=== PATIENT | female | born 2000 | race Caucasian/White ===

== ENCOUNTER 2019-08-04 15:34 | Inpatient (IN) | payer MEDICAID ==
[~2019-08-04] VITALS: Ht 167.6 cm; Wt 90.7 kg
[2019-08-04 15:44] VITALS: BP 136/73
--- NOTE | 2019-08-04 15:54 | NUR ---
PT AMBULATED TO BED 12.
--- NOTE | 2019-08-04 15:58 | NUR ---
Dr. Damon evaluating patient at bedside.
--- NOTE | 2019-08-04 16:00 | NUR ---
19F C/O 10/10 STABBING LOWER ABDOMINAL PAIN X 1 DAY OF SUDDEN ONSET. PAIN HAS BEEN CONTINUOUS. DENIES N/V/D. HAD HAS THIS TYPE OF PAIN BEFORE WITH DX OF DIVERTICULITIS, BUT PT STATES SHE GOT COLONOSCOPY WHICH SHOWED INTERNAL HEMORRHOIDS ONLY. NORMOACTIVE BS. LOWER ABD TENDER TO PALPATION. MED HX: HEMORROIDS, LEFT OVARIAN CYST
--- NOTE | 2019-08-04 16:32 | NUR ---
PT BACK FROM CT
[2019-08-04] MEDS ORDERED: metroNIDAZOLE 500 MG/NS PREMIX 100 ML IV ONE (16:45)
[2019-08-04] MEDS ORDERED: NACL 0.9% 1,000 ML IV ONE (16:45)
[2019-08-04] MEDS ORDERED: LEVOFLOXACIN 750 MG/D5W PREMIX 150 ML IV ONE (16:45)
[2019-08-04] MEDS ORDERED: MORPHINE SULFATE 4 MG/ML SYR IVP ONE (16:50)
[2019-08-04 17:02] LABS: APPEARANCE,URINE CLEAR (CLEAR); BILIRUBIN,URINE NEGATIVE (NEGATIVE); BLOOD, URINE TRACE-I (NEGATIVE); COLOR,URINE YELLOW (YELLOW); LEUKOCYTE ESTERASE ,URINE NEGATIVE (NEGATIVE); NITRITE, URINE NEGATIVE (NEGATIVE); UGLUCOSE NEGATIVE (NEGATIVE)
[2019-08-04 17:05] LABS: RBC,URINE 0-5 /HPF (0-5)
[2019-08-04 17:06] LABS: TRICHOMONAS,URINE None Seen /HPF (None Seen); WBC,URINE NONE SEEN /HPF (0-5); YEAST,URINE None Seen /HPF (None Seen)
[2019-08-04 17:58] LABS: BASOPHILS # (AUTO) 0.1 K/uL (0.00-0.22); BASOPHILS % (AUTO) 0.3 % (0.0-2.0); EOSINOPHILS % (AUTO) 0.2 % (0.0-4.0); HEMATOCRIT 40.5 % (36-48); HEMOGLOBIN 13.4 g/dL (12.0-16.0); LYMPHOCYTES # (AUTO) 1.7 K/uL (2.5-16.5); LYMPHOCYTES % (AUTO) 9.9 % (20.5-51.1); MEAN CORPUSCULAR HEMOGLOBIN 29 pg (27-31); MEAN CORPUSCULAR HGB CONC 33 g/dL (33-37); MEAN CORPUSCULAR VOLUME 86.6 fL (80-94); MONOCYTES # (AUTO) 0.8 K/uL (0.8-1.0); MONOCYTES % (AUTO) 4.4 % (1.7-9.3); NEUTROPHILS # (AUTO) 14.6 K/uL (1.8-7.7); NEUTROPHILS % (AUTO) 85.2 % (42.2-75.2); PLATELET COUNT (AUTO) 243 K/uL (140-450); RED BLOOD CELL COUNT(AUTO) 4.68 MIL/uL (4.20-5.40); RED CELL DISTRIBUTION WIDTH 13.8 % (11.6-13.7); WHITE BLOOD COUNT (AUTO) 17.1 K/uL (4.5-11.0)
[2019-08-04] MEDS ORDERED: MORPHINE SULFATE 2 MG/ML SYR IVP PRN (18:05)
[2019-08-04] MEDS ORDERED: HYDROcodone/APAP 7.5/325 MG 1 TAB PO PRN (18:05)
[2019-08-04] MEDS ORDERED: ACETAMINOPHEN 325 MG TAB PO PRN (18:05)
[2019-08-04] MEDS ORDERED: DOCUSATE SODIUM 100 MG GELCAP PO PRN (18:05)
[2019-08-04] MEDS ORDERED: ONDANSETRON 4 MG/2 ML VIAL IM/IVP PRN (18:05)
[2019-08-04 18:24] LABS: ALBUMIN 4.1 g/dL (3.4-5.0); ANION GAP 15.2 (8-16); CREATININE 0.6 mg/dL (0.6-1.3); POTASSIUM 4.2 mmol/L (3.5-5.1); TOTAL BILIRUBIN 0.4 mg/dL (0.0-1.0)
[2019-08-04 18:25] LABS: PROTHROMBIN TIME 10.1 secs (10.8-13.4)
--- NOTE | 2019-08-04 18:40 | NUR ---
RECEIVED REPORT FROM EMERGENCY ROOM NURSE LEONA FOR CONTINUITY OF CARE. PT IN STABLE CONDITION. RESPIRATIONS EVEN AND UNLABORED. IV INTACT AND PATENT. SAFETY MEASURES IN PLACE. BED IN LOW POSITION. CALL LIGHT AT BEDSIDE. WILL CONTINUE TO MONITOR.
--- NOTE | 2019-08-04 18:40 | NUR ---
Patient will be admitted to care of DR. TINOCO. Admited to TELE. Will go to room 111B. Belongings list completed. Report to ERNO GOINS.
--- NOTE | 2019-08-04 19:26 | NUR ---
GAVE REPORT TO HOME AID NURSE MIKKI FOR CONTINUITY OF CARE. PT IN STABLE CONDITION.
--- NOTE | 2019-08-04 19:30 | NUR ---
RECEIVED FROM AM RN FOR ADMISSION . AWAKE AND ALERT. TALKING WELL WITH FEMALE VISITOR WITH HER AND ABLE TO VERBALIZE NEEDS WELL. IVF SITE TO LAC #20 INTACT AND NO S/S OF INFILTRATION. CARE PLANS FOR THE NIGHT DISCUSSED WITH HER AND CALL LIGHT USE EXPLAINED. SKIN INTACT. NO SOB. DENIES PAIN AT THIS TIME. TELEMETRY MONITORING. DX. OF DIVERTICULITIS AND MICROPERFORATION. ENCOURAGED TO CALL FOR HE;LP OR IF IN PAIN. "OK" SPEAKS GOOD MONGOLIAN.
[2019-08-04 19:37] LABS: BARBITURATE, URINE NEG. ng/ml (NEG <=200); BENZODIAZEPINE, URINE NEG. ng/mL (NEG <=200); CANNABINOID, URINE NEG. ng/mL (NEG <=50); COCAINE, URINE NEG. ng/mL (NEG <=300); OPIATE, URINE NEG. ng/mL (NEG <=2000); PHENCYCLIDINE SCREEN,URINE NEG. ng/mL (NEG <=25)
[2019-08-04 19:46] LABS: CHOL/HDL RATIO 3.6 (1-4.5); FREE T4 (FREE THYROXINE) 0.97 ng/dL (0.76-1.46); MAGNESIUM 1.6 mg/dL (1.8-2.4); PHOSPHORUS 3.7 mg/dL (2.5-4.9); THYROID STIMULATING HORMONE 0.91 uIU/mL (0.34-3.74)
[2019-08-04 19:49] VITALS: BP 129/68
[2019-08-04] MEDS: DEXT 5% / NACL 0.45% 1,000 ML IV SCH (20:14)
--- NOTE | 2019-08-04 23:35 | NUR ---
PT. SLEEPING AT THIS TIME. CALL LIGHT WITH IN REACH. NO RESTLESSNESS NOTED.
[2019-08-05] MEDS: metroNIDAZOLE 500 MG/NS PREMIX 100 ML IV SCH ×3 (01:20→17:47)
[2019-08-05 01:26] VITALS: BP 111/66
--- NOTE | 2019-08-05 01:29 | NUR ---
WOKE UP EASILY WHEN VITAL SIGNS TAKEN. NO COMPLAINTS OF ANY PAIN AT THIS TIME. STATED SHE WENT RESTROOM BY HERSELF EARLIER WITH OUT CALLING FOR HELP. INDEPENDENT. ROM X 4. ENCOURAGED TO CALL FOR ANY HELP SHE MAY NEED.
[2019-08-05] MEDS: DEXT 5% / NACL 0.45% 1,000 ML IV SCH ×3 (02:50→19:30)
--- NOTE | 2019-08-05 03:00 | NUR ---
SLEEPING. NO RESTLESSNESS. IVF SITE INTACT AND NO INFILTRATION NOTED. CALL LIGHT WITH IN REACH.
[2019-08-05 04:10] VITALS: BP 109/59
[2019-08-05 06:50] LABS: BASOPHILS # (AUTO) 0.1 K/uL (0.00-0.22); BASOPHILS % (AUTO) 0.5 % (0.0-2.0); EOSINOPHILS # (AUTO) 0.1 K/uL (0-0.4); EOSINOPHILS % (AUTO) 0.5 % (0.0-4.0); HEMATOCRIT 36.2 % (36-48); HEMOGLOBIN 12.1 g/dL (12.0-16.0); LYMPHOCYTES # (AUTO) 2.4 K/uL (2.5-16.5); LYMPHOCYTES % (AUTO) 20.7 % (20.5-51.1); MEAN CORPUSCULAR HEMOGLOBIN 29 pg (27-31); MEAN CORPUSCULAR HGB CONC 34 g/dL (33-37); MEAN CORPUSCULAR VOLUME 86.5 fL (80-94); MONOCYTES # (AUTO) 0.7 K/uL (0.8-1.0); MONOCYTES % (AUTO) 6.2 % (1.7-9.3); NEUTROPHILS # (AUTO) 8.3 K/uL (1.8-7.7); NEUTROPHILS % (AUTO) 72.1 % (42.2-75.2); PLATELET COUNT (AUTO) 217 K/uL (140-450); RED BLOOD CELL COUNT(AUTO) 4.19 MIL/uL (4.20-5.40); RED CELL DISTRIBUTION WIDTH 13.8 % (11.6-13.7); WHITE BLOOD COUNT (AUTO) 11.5 K/uL (4.5-11.0)
--- NOTE | 2019-08-05 06:53 | NUR ---
NO COMPLAINT OF ANY PAIN THIS SHIFT. INDEPENDENT. GOES BRP BY HERSELF. ROM X 4. WILL ENDORSE TO AM RN FOR CONTINUITY OF CARE. PT. AWARE FROM START OF SHIFT THAT SHE IS NPO. DISCUSSED REASON WITH HER. UNDERSTOOD WELL. TELEMETRY MONITORING.
[2019-08-05 07:13] LABS: T4 (THYROXINE) 7.9 ug/dL (4.5-12.0)
[2019-08-05 07:26] LABS: ANION GAP 13.3 (8-16); CARBON DIOXIDE 24.3 mmol/L (21-32); CREATININE 0.6 mg/dL (0.6-1.3); POTASSIUM 3.6 mmol/L (3.5-5.1)
[2019-08-05 07:37] LABS: MAGNESIUM 1.7 mg/dL (1.8-2.4); PHOSPHORUS 3.4 mg/dL (2.5-4.9)
--- NOTE | 2019-08-05 07:38 | NUR ---
RECEIVED REPORT FROM REFINERY OPERATOR VISBREAKING NURSE FOR CONTINUITY OF CARE. PT IS IN STABLE CONDITION. RESPIRATIONS EVEN AND UNLABORED. IV IN THE LEFT AC 20G INFUSING D51/2NS @20ML. IV INTACT AND PATENT. SAFETY MEASURES IN PLACE. EXPLAINED POC TO PT AND PT VERBALIZED UNDERSTANDING. BED IN LOW POSITION. CALL LIGHT WITHIN REACH. WILL MONITOR PT CLOSELY.
[2019-08-05 08:00] VITALS: BP 119/65
--- NOTE | 2019-08-05 08:08 | NUR ---
PATIENT HAS BEEN SCREENED AND CATEGORIZED HIGH NUTRITION RISK. PATIENT WILL BE SEEN WITHIN 1-2 DAYS OF ADMISSION. 08/05/19-08/06/[address]
[2019-08-05] MEDS: LACTOBACILLUS RHAMNOSUS GG 1 EACH CAP PO SCH (08:34)
[2019-08-05] MEDS ORDERED: MAGNESIUM OXIDE 400 MG TAB PO SCH (09:00)
--- NOTE | 2019-08-05 09:12 | NUR ---
ADMINISTERED MORNING MEDS TO PT. PT TOLERATED THEM WELL. ALL NEEDS MET. WILL CONTINUE TO ROUND FREQUENTLY ON PT. BED IN LOW POSITION, CALL LIGHT WITHIN REACH.
[2019-08-05] MEDS ORDERED: GENTAMICIN 160 MG in DEXTROSE 5% 100 ML IV SCH (11:30)
--- NOTE | 2019-08-05 11:49 | NUR ---
PT RESTING IN BED WITH FAMILY AT BEDSIDE. WILL CONTINUE TO ROUND FREQUENTLY ON PT. BED IN LOW POSITION, CALL LIGHT WITHIN REACH.
--- NOTE | 2019-08-05 13:47 | NUR ---
PT RESTING IN BED WITH FAMILY AT BEDSIDE. PT STATES NOT PAIN. ALL NEEDS MET. WILL CONTINUE TO ROUND FREQUENTLY ON PT.
--- NOTE | 2019-08-05 14:09 | NUR ---
08/05/19 RD INITIAL ASSESSMENT COMPLETED PLEASE REFER TO NUTRITION ASSESSMENT UNDER CARE ACTIVITY FOR ESTIMATED NUTRITIONAL NEEDS. 1. CONTINUE NPO DIET TOLERATED 2. IF/WHEN MEDICALLY STABLE TO BEGIN NUTRITION, CONSIDER ADVANCE DIET TOLERATED TO REGULAR DIET 3. RD PROVIDED NUTRITION EDUCATION FOR LOW FIBER DIET REGARDING DIVERTICULITIS 4. RD TO FOLLOW-UP 2-3 DAYS, HIGH RISK GABY MAURICIO, RD
--- NOTE | 2019-08-05 15:47 | NUR ---
PT SITTING IN BEDSIDE CHAIR WITH FAMILY AT BEDSIDE. ALL NEEDS MET. WILL CONTINUE TO ROUND FREQUENTLY ON PT.
[2019-08-05 16:00] VITALS: BP 118/68
--- NOTE | 2019-08-05 17:49 | NUR ---
PT RESTING IN BED. ALL NEEDS MET. WILL CONTINUE TO ROUND FREQUENTLY ON PT.
[2019-08-05] MEDS ORDERED: LEVOFLOXACIN 750 MG/D5W PREMIX 150 ML IV SCH (19:00)
--- NOTE | 2019-08-05 19:31 | NUR ---
RECEIVED BEDSIDE REPORT FROM DAY RN. PT IS AAOX4. AMBULATORY. ON ROOM AIR RESPIRATIONS ARE EQUAL AND UNLABORED. C/C WAS LOW ABD PAIN CURRENTLY DENIES PAIN. ABLE TO TOLERATE CLEAR LIQUID FOR DINNER. IV ON LAC 20G IVF INFUSING PER ORDERS. POC DISCUSSED WITH PT AND FAMILY WILL CONTINUE TO MONITOR.
--- NOTE | 2019-08-05 19:43 | NUR ---
ENDORSED PT TO APPLIANCE LINE ASSEMBLER FOR CONTINUITY OF CARE. PT INSTABLE CONDITION AT THIS TIME.
--- NOTE | 2019-08-05 20:37 | NUR ---
PATIENT IS RESTING COMFORTABLY IN BED WATCHING TELEVISION. FAMILY IS AT BEDSIDE. ALL NEEDS MET AT THIS TIME. WILL CONTINUE TO MONITOR.
--- NOTE | 2019-08-05 22:00 | NUR ---
PATIENT IS RESTING COMFORTABLY IN BED WATCHING TV NO S/S OF DISTRESS. CALL LIGHT IS WITHIN REACH. WILL CONTINUE TO MONITOR.
[2019-08-05 23:21] VITALS: BP 111/70
--- NOTE | 2019-08-05 23:23 | NUR ---
VITAL SIGNS ARE WITHIN NORMAL LIMITS. ALL NEEDS MET AT THIS TIME. CALL LIGHT IS WITHIN REACH. WILL CONTINUE TO MONITOR.
[2019-08-06] MEDS: metroNIDAZOLE 500 MG/NS PREMIX 100 ML IV SCH ×2 (01:38→09:21)
--- NOTE | 2019-08-06 01:38 | NUR ---
FLAGYL NOW INFUSING PER ORDERS. ALL SAFETY MEASURES ARE IN PLACE. CALL LIGHT IS WITHIN REACH. WILL CONTINUE TO MONITOR.
[2019-08-06] MEDS: DEXT 5% / NACL 0.45% 1,000 ML IV SCH (03:50)
--- NOTE | 2019-08-06 04:37 | NUR ---
PT IS SLEEPING COMFORTABLY IN BED. CHEST RISE AND FALL. CALL LIGHT IS WITHIN REACH. WILL CONTINUE TO MONITOR.
--- NOTE | 2019-08-06 06:40 | NUR ---
PT DENIES ANY PAIN OR DISCOMFORT. REQUESTING TO SHOWER. PROVIDED TOWELS AND SHAMPOO. PT WITH STEADY GAIT. WILL CONTINUE TO MONITOR.
--- NOTE | 2019-08-06 07:20 | NUR ---
GAVE BEDSIDE REPORT TO DAY SHIFT RN. PT ENDORSED IN STABLE CONDITION.
--- NOTE | 2019-08-06 07:21 | NUR ---
Report received from pm nurse Alice. Pt sitting up in bed, no c/o discomfort, no signs of distress. Left AC IV intact with ongoing D5 1/2NS @ 120ml/hr. Call light within reach.
[2019-08-06 08:00] VITALS: BP 117/58
[2019-08-06] MEDS: LACTOBACILLUS RHAMNOSUS GG 1 EACH CAP PO SCH (09:21)
[2019-08-06] MEDS ORDERED: LACT10CA1 PO (11:47)
[2019-08-06] MEDS ORDERED: CIPR500T4 PO (11:47)
[2019-08-06] MEDS ORDERED: METR250T2 PO (11:47)
[2019-08-06] MEDS ORDERED: MAGNESIUM OXIDE 400 MG TAB PO SCH (12:00)
--- NOTE | 2019-08-06 12:45 | NUR ---
Pt consumed 75% of lunch, stephy well. No c/o nausea or GI discomfort. Left AC IV intact with ongoing D5 1/2 NS @ 120ml/h.
--- NOTE | 2019-08-06 14:40 | NUR ---
Written & verbal discharge instructions provided to pt. Verbalized understanding & agree to take prescriptions as ordered & f/u with PCP & GI. Left AC IV discontinued, catheter intact, site with min bleeding covered with dry gauze & tape. Name band removed. Pt discharged at this time, amb off unit with mother Jyotsna. All belongings with pt upon departure.
== END 2019-08-06 14:40 | disposition home or self-care (01) | DRG 720 ==
LOC: MED 15:34 → MTU 18:03
PROVIDERS: ADMIT General Practice; ATTEND General Practice
DX: A41.9 Sepsis, unspecified organism (principal); K76.0 Fatty (change of) liver, not elsewhere classified; E83.42 Hypomagnesemia; K57.20 Diverticulitis of large intestine with perforation and abscess without bleeding; R74.0 Nonspecific elevation of levels of transaminase and lactic acid dehydrogenase [LDH]; R59.0 Localized enlarged lymph nodes; K64.8 Other hemorrhoids; E66.9 Obesity, unspecified; Z68.32 Body mass index [BMI] 32.0-32.9, adult; Z90.49 Acquired absence of other specified parts of digestive tract
CPT/HCPCS: 36415; 80048; 80053; 80305; 81001; 82150; 83036; 83605; 83690; 83735; 83880; 84100; 84436; 84439; 84443; 84484; 85025; 85610; 85730; 87040; 87081; 87086; 93005; 96365; 96375; 99285; J1580; J1956; J2270; J2405; J3490; J7060

== ENCOUNTER 2019-11-24 11:42 | Emergency (ER) | payer SELFPAY ==
[~2019-11-24] VITALS: Ht 165.1 cm; Wt 90.7 kg
[~2019-11-24 11:42] MED LIST: CIPR500T4 PO; LACT10CA1 PO; METR250T2 PO
[2019-11-24 12:08] VITALS: BP 154/84
--- NOTE | 2019-11-24 13:14 | NUR ---
19 Y/O F C/O LOWER ABDOMINAL PAIN X 3 DAYS 04/11 WITH CRAMPING. PT DENIES N/V DIARRHEA. PT STATES SHE HAS DIVERTICULITIES, DOES NOT FEEL THIS IS THE SAME TYPE OF PAIN WITH HER DIVERTICULITIS. PT ABDOMEN IS FLAT, NO PAIN WITH PALPATION. PT POSITIONED FOR COMFORT. MOTHER AT BEDSIDE. MADINA
--- NOTE | 2019-11-24 13:15 | NUR ---
REPORT GIVEN TO BUSTER CASTRO FOR CHANGE OF SHIFT.
[2019-11-24] MEDS ORDERED: metroNIDAZOLE 250 MG TAB PO ONE (13:35)
[2019-11-24] MEDS ORDERED: CIPROFLOXACIN 250 MG TAB PO ONE (13:35)
[2019-11-24 14:01] VITALS: BP 123/65
--- NOTE | 2019-11-24 14:02 | NUR ---
Patient discharged with v/s stable. Written and verbal after care instructions given and explained. Patient alert, oriented and verbalized understanding of instructions. Ambulatory with steady gait. All questions addressed prior to discharge. ID band removed. Patient advised to follow up with PMD. Rx of FLAGYL, CIPRO given. Patient educated on indication of medication including possible reaction and side effects. Opportunity to ask questions provided and answered.
== END 2019-11-24 14:02 | disposition home or self-care (01) ==
LOC: MED 11:42
DX: K57.92 Diverticulitis of intestine, part unspecified, without perforation or abscess without bleeding (principal); Z79.899 Other long term (current) drug therapy; Z90.49 Acquired absence of other specified parts of digestive tract
CPT/HCPCS: 81025; 99284

== ENCOUNTER 2020-07-09 10:10 | Emergency (ER) | payer MEDICAID ==
[~2020-07-09] VITALS: Ht 167.6 cm; Wt 65.8 kg
[2020-07-09 10:22] VITALS: BP 136/92
--- NOTE | 2020-07-09 10:28 | NUR ---
PATIENT UNABLE TO PROVIDE URINE AT THIS TIME
--- NOTE | 2020-07-09 10:28 | NUR ---
20 Y/O FEMALE C/O ABD PAIN AND CRAMPING THAT STARTED ON THURSDAY WITH START OF MENSTRUAL CYCLE. PATIENT IS CURRENTLY HAVING 10/10 SUPRAPUBIC PAIN, CRAMPING. TOOK TYLENOL THIS MORNING AT 6AM FOR HEADACHE BUT ABD PAIN IS UNRELIEVED. PATIENT STATES SHE HAD A FEVER ON THURSDAY BUT IS AFEBRILE AT THIS TIME. DENIES ANY COUGH/SOB. BOWEL SOUNDS NORMOACTIVE IN ALL QUADRANTS. LBM: 07/07/20 NO PMH NKA
--- NOTE | 2020-07-09 10:57 | NUR ---
PROVIDED PATIENT WITH WATER CUP PER ERMD REQUEST
--- NOTE | 2020-07-09 11:05 | NUR ---
pt unable to provide urine at this time
[2020-07-09 12:49] LABS: APPEARANCE,URINE SL CLOUDY (CLEAR); BILIRUBIN,URINE 1+ (NEGATIVE); BLOOD, URINE 3+ (NEGATIVE); COLOR,URINE RED (YELLOW); LEUKOCYTE ESTERASE ,URINE NEGATIVE (NEGATIVE); NITRITE, URINE NEGATIVE (NEGATIVE); UGLUCOSE NEGATIVE (NEGATIVE)
[2020-07-09] MEDS ORDERED: KETOROLAC 30 MG/ML VIAL IM ONE (12:55)
[2020-07-09 12:57] LABS: RBC,URINE >100 /HPF (0-5)
[2020-07-09] MEDS ORDERED: cefTRIAXone 1,000 MG in LIDOCAINE MPF 1% 2.1 ML IM ONE (13:50)
[2020-07-09] MEDS ORDERED: cefTRIAXone 1,000 MG VIAL ONE (13:55)
[2020-07-09] MEDS ORDERED: LIDOCAINE MPF 1% 5 ML ONE (13:55)
[2020-07-09 14:17] VITALS: BP 136/92
--- NOTE | 2020-07-09 14:17 | NUR ---
Patient discharged with v/s stable. Written and verbal after care instructions given and explained. Patient alert, oriented and verbalized understanding of instructions. Ambulatory with steady gait. All questions addressed prior to discharge. ID band removed. Patient advised to follow up with PMD. Rx of CIPROFLOXACIN, NAPROSYN, FLAGYL given. Patient educated on indication of medication including possible reaction and side effects. Opportunity to ask questions provided and answered.
== END 2020-07-09 14:17 | disposition home or self-care (01) ==
LOC: MED 10:10
DX: N83.201 Unspecified ovarian cyst, right side (principal); N39.0 Urinary tract infection, site not specified; Z79.899 Other long term (current) drug therapy
CPT/HCPCS: 76830; 81001; 81025; 87086; 96372; 99284; J0696; J1885; J2001; Q0092

== ENCOUNTER 2020-07-19 09:13 | Emergency (ER) | payer MEDICAID ==
[~2020-07-19] VITALS: Ht 165.1 cm; Wt 91.6 kg
[2020-07-19 09:15] VITALS: BP 149/89
--- NOTE | 2020-07-19 09:22 | NUR ---
PATIENT AMBULATED TO ER BED 11
[2020-07-19] MEDS ORDERED: KETOROLAC 60 MG/2 ML VIAL IM ONE (09:50)
--- NOTE | 2020-07-19 10:25 | NUR ---
NO ADVERSE DRUG REACTIONS. PAIN 2/10
[2020-07-19 10:26] VITALS: BP 138/90
--- NOTE | 2020-07-19 10:26 | NUR ---
PT DISCHARGED AT 1026. DISCHARGE EDUCATION GIVEN, PT VERBALIZED UNDERSTANDING. DICSCHARGE PAPERWORK SIGNED, COPIES GIVEN TO PT. LEFT UNIT ON FOOT. Patient discharged with v/s stable. Written and verbal after care instructions given and explained. Patient alert, oriented and verbalized understanding of instructions. Ambulatory with steady gait. All questions addressed prior to discharge. ID band removed. Patient advised to follow up with PMD. Rx of MOTRIN AND NORCO given. Patient educated on indication of medication including possible reaction and side effects. Opportunity to ask questions provided and answered. PT INSTRUCTED NOT TO DRIVE AFTER TAKING NORCO.
== END 2020-07-19 10:26 | disposition home or self-care (01) ==
LOC: MED 09:13
DX: R10.9 Unspecified abdominal pain (principal); Z79.899 Other long term (current) drug therapy
CPT/HCPCS: 81002; 81025; 96372; 99283; J1885

== ENCOUNTER 2021-07-16 11:39 | Emergency (ER) | payer MEDICAID ==
[~2021-07-16] VITALS: Ht 167.6 cm; Wt 86.2 kg
[~2021-07-16 11:39] MED LIST changes: +METR-520 PO; -METR250T2 PO
[2021-07-16 11:55] VITALS: BP 142/83
--- NOTE | 2021-07-16 12:08 | NUR ---
PT TO WAIT IN LOBBY
--- NOTE | 2021-07-16 14:01 | NUR ---
ОЛЬГА collected, walked to lab and handed to CPT. Quinton
[2021-07-16] MEDS ORDERED: KETOROLAC 30 MG/ML VIAL IM ONE (14:40)
[2021-07-16 16:35] LABS: BASOPHILS # (AUTO) 0.2 K/uL (0.00-0.22); BASOPHILS % (AUTO) 1.4 % (0.0-2.0); EOSINOPHILS # (AUTO) 0.1 K/uL (0-0.4); EOSINOPHILS % (AUTO) 0.9 % (0.0-4.0); HEMATOCRIT 36.6 % (36-48); HEMOGLOBIN 12.3 g/dL (12.0-16.0); LYMPHOCYTES # (AUTO) 2.8 K/uL (2.5-16.5); LYMPHOCYTES % (AUTO) 24.7 % (20.5-51.1); MEAN CORPUSCULAR HEMOGLOBIN 29 pg (27-31); MEAN CORPUSCULAR HGB CONC 34 g/dL (33-37); MEAN CORPUSCULAR VOLUME 84.6 fL (80-94); MONOCYTES # (AUTO) 0.7 K/uL (0.8-1.0); MONOCYTES % (AUTO) 5.8 % (1.7-9.3); NEUTROPHILS # (AUTO) 7.7 K/uL (1.8-7.7); NEUTROPHILS % (AUTO) 67.2 % (42.2-75.2); PLATELET COUNT (AUTO) 344 K/uL (140-450); RED BLOOD CELL COUNT(AUTO) 4.32 MIL/uL (4.20-5.40); RED CELL DISTRIBUTION WIDTH 12.9 % (11.6-13.7); WHITE BLOOD COUNT (AUTO) 11.5 K/uL (4.8-10.8)
[2021-07-16] MEDS: KETOROLAC 30 MG/ML VIAL IVP ONE (16:37)
[2021-07-16 16:40] LABS: CARBON DIOXIDE 27.4 mmol/L (21-32); CREATININE 0.7 mg/dL (0.6-1.3); POTASSIUM 3.4 mmol/L (3.5-5.1); TOTAL BILIRUBIN 0.3 mg/dL (0.0-1.0)
--- NOTE | 2021-07-16 16:42 | NUR ---
21 Y/O FEMALE C/O LOWER ABDOMINAL PAIN 5/10 DESCRIBES ACHING X1DAY. PT STATES +NAUSEA, DENIES VOMITING/DIARRHEA. DENIES RX AT HOME PRIOR TO ARRIVAL. DENIES DYSURIA. PMH: OVARIAN CYCTS AND DIVERTICULITIS NKA
[2021-07-16] MEDS ORDERED: NAPR-1704 PO (17:49)
[2021-07-16 18:10] VITALS: BP 124/75
--- NOTE | 2021-07-16 18:11 | NUR ---
Patient discharged with v/s stable. Written and verbal after care instructions given ABD PAINand explained. Patient alert, oriented and verbalized understanding of instructions. Ambulatory with steady gait. All questions addressed prior to discharge. ID band removed. Patient advised to follow up with PMD. Rx of NAPROXEN given. Patient educated on indication of medication including possible reaction and side effects. Opportunity to ask questions provided and answered.
== END 2021-07-16 18:11 | disposition home or self-care (01) ==
LOC: MED 11:39
DX: R10.30 Lower abdominal pain, unspecified (principal); R03.0 Elevated blood-pressure reading, without diagnosis of hypertension
CPT/HCPCS: 36415; 80053; 81002; 81025; 83690; 85025; 96374; 99283; J1885; 99284

== ENCOUNTER 2021-07-27 06:37 | Emergency (ER) | payer MEDICAID ==
[~2021-07-27] VITALS: Ht 165.1 cm; Wt 86.2 kg
[~2021-07-27 06:37] MED LIST changes: +NAPR-1704 PO
[2021-07-27 06:55] VITALS: BP 137/97
--- NOTE | 2021-07-27 06:55 | NUR ---
TO BED AMBULATORY
--- NOTE | 2021-07-27 07:25 | NUR ---
SEEN AND EXAMINED BY KENN
[2021-07-27] MEDS ORDERED: DICYCLOMINE 10 MG CAP PO ONE (07:40)
[2021-07-27] MEDS ORDERED: KETOROLAC 30 MG/ML VIAL IM ONE (07:40)
--- NOTE | 2021-07-27 08:24 | NUR ---
21/F PRESENTS TO ED WITH C/O LOWER ABDOMINAL PAIN RADIATING TO BACK. PATIENT STATES SHE WAS RECENTLY SEEN HERE FOR SAME SYMPTOMS AND INITIALLY FELT BETTER, STATING PAIN RETURNED THIS MORNING WAKING HER UP FROM HER SLEEP. PATIENT STATES SOME NAUSEA, DENIES VOMITING OR DIARRHEA, STATES DYSURIA, DENIES HEMATURIA. DENIES CP, SOB, FEVER OR CHILS.
--- NOTE | 2021-07-27 08:26 | NUR ---
Labs drawn and walked to lab
[2021-07-27 08:33] LABS: BASOPHILS # (AUTO) 0.1 K/uL (0.00-0.22); BASOPHILS % (AUTO) 0.6 % (0.0-2.0); EOSINOPHILS % (AUTO) 0.4 % (0.0-4.0); HEMATOCRIT 35.9 % (36-48); HEMOGLOBIN 12.3 g/dL (12.0-16.0); LYMPHOCYTES # (AUTO) 1.3 K/uL (2.5-16.5); LYMPHOCYTES % (AUTO) 9.9 % (20.5-51.1); MEAN CORPUSCULAR HEMOGLOBIN 29 pg (27-31); MEAN CORPUSCULAR HGB CONC 34 g/dL (33-37); MEAN CORPUSCULAR VOLUME 83.8 fL (80-94); MONOCYTES # (AUTO) 0.5 K/uL (0.8-1.0); MONOCYTES % (AUTO) 3.6 % (1.7-9.3); NEUTROPHILS # (AUTO) 11.1 K/uL (1.8-7.7); NEUTROPHILS % (AUTO) 85.5 % (42.2-75.2); PLATELET COUNT (AUTO) 333 K/uL (140-450); RED BLOOD CELL COUNT(AUTO) 4.28 MIL/uL (4.20-5.40); RED CELL DISTRIBUTION WIDTH 13.1 % (11.6-13.7)
[2021-07-27 09:01] LABS: ALBUMIN 4.1 g/dL (3.4-5.0); ANION GAP 13.8 (8-16); CARBON DIOXIDE 25.3 mmol/L (21-32); CREATININE 0.7 mg/dL (0.6-1.3); POTASSIUM 4.1 mmol/L (3.5-5.1); TOTAL BILIRUBIN 0.5 mg/dL (0.0-1.0)
[2021-07-27 09:02] LABS: APPEARANCE,URINE CLEAR (CLEAR); BILIRUBIN,URINE NEGATIVE (NEGATIVE); BLOOD, URINE TRACE-I (NEGATIVE); COLOR,URINE YELLOW (YELLOW); LEUKOCYTE ESTERASE ,URINE NEGATIVE (NEGATIVE); NITRITE, URINE NEGATIVE (NEGATIVE); UGLUCOSE NEGATIVE (NEGATIVE)
[2021-07-27] MEDS ORDERED: BEN10 PO (09:59)
[2021-07-27] MEDS ORDERED: NAPR-1704 PO (10:00)
--- NOTE | 2021-07-27 10:17 | NUR ---
Patient discharged with v/s stable. Written and verbal after care instructions given and explained. Patient alert, oriented and verbalized understanding of instructions. Ambulatory with steady gait. All questions addressed prior to discharge. ID band removed. Patient advised to follow up with PMD. Rx of bentyl and naprosyn given. Patient educated on indication of medication including possible reaction and side effects. Opportunity to ask questions provided and answered.
== END 2021-07-27 10:17 | disposition home or self-care (01) ==
LOC: MED 06:37
DX: R10.30 Lower abdominal pain, unspecified (principal); Z79.899 Other long term (current) drug therapy
CPT/HCPCS: 36415; 80053; 81003; 81025; 84702; 85025; 96372; 99283; J1885

== ENCOUNTER 2021-12-22 07:17 | Inpatient (IN) | payer MEDICAID, SELFPAY ==
[~2021-12-22] VITALS: Ht 165.1 cm; Wt 78.9 kg
[~2021-12-22 07:17] MED LIST changes: +BEN10 PO
[2021-12-22 07:23] VITALS: BP 135/92
--- NOTE | 2021-12-22 07:35 | NUR ---
PT AMB TO BED 8
--- NOTE | 2021-12-22 08:20 | NUR ---
DR STOVER AT BEDSIDE.
--- NOTE | 2021-12-22 08:34 | NUR ---
21 Y/O F HERE C/O ABD PAIN FOR 6 DAYS 06/11. IT RADIATES TO HER LOWER BACK AREA. PT TOOK IBUPROFEN AT 0500 AM BEFORE COMING TODAY WITH LITTLE RELEAVE. NKZafar PMH: DIVERTICULITIS
--- NOTE | 2021-12-22 08:35 | NUR ---
PT CHANGED INTO GAWN.
--- NOTE | 2021-12-22 09:24 | NUR ---
ULTRASOUND AT BEDSIDE.
[2021-12-22 11:06] LABS: APPEARANCE,URINE CLEAR (CLEAR); BILIRUBIN,URINE NEGATIVE (NEGATIVE); BLOOD, URINE TRACE-I (NEGATIVE); COLOR,URINE YELLOW (YELLOW); LEUKOCYTE ESTERASE ,URINE NEGATIVE (NEGATIVE); NITRITE, URINE NEGATIVE (NEGATIVE); UGLUCOSE NEGATIVE (NEGATIVE)
--- NOTE | 2021-12-22 11:09 | NUR ---
ANASTACIO COLLECTED AND HANDED TO ELVIRA IN LAB
--- NOTE | 2021-12-22 11:16 | NUR ---
IV ESTABLISHED. BLOOD COLLECTED AND WLKED TO LAB
[2021-12-22 11:28] LABS: BASOPHILS # (AUTO) 0.1 K/uL (0.00-0.22); EOSINOPHILS # (AUTO) 0.1 K/uL (0-0.4); EOSINOPHILS % (AUTO) 0.7 % (0.0-4.0); HEMATOCRIT 37.5 % (36-48); HEMOGLOBIN 12.8 g/dL (12.0-16.0); LYMPHOCYTES # (AUTO) 2.2 K/uL (2.5-16.5); LYMPHOCYTES % (AUTO) 21.8 % (20.5-51.1); MEAN CORPUSCULAR HEMOGLOBIN 28 pg (27-31); MEAN CORPUSCULAR HGB CONC 34 g/dL (33-37); MEAN CORPUSCULAR VOLUME 80.9 fL (80-94); MONOCYTES # (AUTO) 0.4 K/uL (0.8-1.0); MONOCYTES % (AUTO) 4.1 % (1.7-9.3); NEUTROPHILS # (AUTO) 7.2 K/uL (1.8-7.7); NEUTROPHILS % (AUTO) 72.4 % (42.2-75.2); PLATELET COUNT (AUTO) 402 K/uL (140-450); RED BLOOD CELL COUNT(AUTO) 4.64 MIL/uL (4.20-5.40); RED CELL DISTRIBUTION WIDTH 13.8 % (11.6-13.7); WHITE BLOOD COUNT (AUTO) 9.9 K/uL (4.8-10.8)
[2021-12-22 11:37] LABS: RBC,URINE 0-5 /HPF (0-5); WBC,URINE 0 /HPF (0-5)
[2021-12-22] MEDS ORDERED: MORPHINE SULFATE 2 MG/ML SYR IVP PRN (11:50)
[2021-12-22] MEDS ORDERED: DEXT 5% /NACL 0.9% 1,000 ML IV SCH (11:50)
[2021-12-22 11:59] LABS: ALBUMIN 3.9 g/dL (3.4-5.0); ANION GAP 15.1 (8-16); CARBON DIOXIDE 25.4 mmol/L (21-32); CREATININE 0.6 mg/dL (0.6-1.3); POTASSIUM 4.5 mmol/L (3.5-5.1); TOTAL BILIRUBIN 0.3 mg/dL (0.0-1.0)
[2021-12-22 13:15] VITALS: BP 128/78
--- NOTE | 2021-12-22 13:15 | NUR ---
PT TRANSPORTED TO [facility] VIA WHEELCHAIR.
--- NOTE | 2021-12-22 13:19 | NUR ---
Patient will be admitted to care of DANILO GOINS. Admited to MED SURGE. Will go to [id number]. Belongings list completed. Report to DANILO GOINS.
--- NOTE | 2021-12-22 13:24 | NUR ---
Chart checked and completed. The patient's care was reviewed and supervised by Danelle Strong, RN, RN.
--- NOTE | 2021-12-22 13:26 | NUR ---
OR NURSE ARRIVED TO TRANSPORT PT TO OR FOR PROCEDURE.
[2021-12-22] MEDS: DEXT 5% /NACL 0.9% 1,000 ML IV SCH ×2 (13:35→21:42)
[2021-12-22] MEDS ORDERED: DOCUSATE SODIUM 100 MG GELCAP PO PRN (13:35)
[2021-12-22] MEDS ORDERED: HYDROcodone/APAP 7.5/325 MG 1 TAB PO PRN (13:35)
[2021-12-22] MEDS ORDERED: POTASSIUM CHLORIDE 10 MEQ TABER PO PRN (13:35)
[2021-12-22] MEDS ORDERED: ZOLPIDEM 5 MG TAB PO PRN (13:35)
[2021-12-22] MEDS ORDERED: guaiFENesin DM 200/20 MG-10 ML 10 ML UDC PO PRN (13:35)
[2021-12-22] MEDS ORDERED: ACETAMINOPHEN 325 MG TAB PO PRN (13:35)
[2021-12-22] MEDS ORDERED: LACTATED RINGERS 1,000 ML IV SCH (13:55)
[2021-12-22] MEDS ORDERED: MEPERIDINE 25 MG/ML SYR IVP PRN ×2 (13:55→16:25)
[2021-12-22] MEDS ORDERED: HYDROmorphone 1 MG/ML AMP IVP PRN ×2 (13:55→16:25)
[2021-12-22] MEDS ORDERED: ONDANSETRON 4 MG/2 ML VIAL IVP PRN ×2 (13:55→16:25)
[2021-12-22] MEDS ORDERED: fentaNYL citrate 0.05 MG/ML VIAL ONE (14:11)
[2021-12-22] MEDS ORDERED: BUPIVACAINE-MPF/EPI 0.25% 30 ML VIAL INJ ONE (14:14)
[2021-12-22] MEDS ORDERED: SUGAMMADEX SODIUM 200 MG/2 ML VIAL IV ONE (14:19)
[2021-12-22] MEDS ORDERED: DEXAMETHASONE 4 MG/ML VIAL ONE (14:20)
[2021-12-22] MEDS ORDERED: ROCURONIUM 50 MG/5 ML VIAL IV ONE (14:20)
[2021-12-22] MEDS ORDERED: SEVOFLURANE 250 ML BTL INH ONE (14:20)
[2021-12-22] MEDS ORDERED: HYDROmorphone PFS 2 MG/ML SYR ONE (15:43)
[2021-12-22] MEDS ORDERED: KETOROLAC 30 MG/ML VIAL ONE (15:48)
--- NOTE | 2021-12-22 16:18 | NUR ---
PT STILL IN OR.
[2021-12-22] MEDS ORDERED: diphenhydrAMINE 50 MG/ML VIAL IVP PRN (16:25)
--- NOTE | 2021-12-22 17:15 | NUR ---
PT RETURNED FROM OR AND CT SCAN. PT STABLE. DENIES PAIN. CALL LIGHT IN REACH. ALL SAFETY MEASURES IN PLACE. MRSA SWAB COMPLETE
[2021-12-22 18:59] LABS: PROTHROMBIN TIME 10.3 secs (10.8-13.4)
[2021-12-22 19:10] LABS: FREE T4 (FREE THYROXINE) 1.31 ng/dL (0.76-1.46); MAGNESIUM 1.9 mg/dL (1.8-2.4); PHOSPHORUS 5.2 mg/dL (2.5-4.9); THYROID STIMULATING HORMONE 1.76 uIU/mL (0.34-3.74)
--- NOTE | 2021-12-22 19:35 | NUR ---
ENDORSED PT TO PARTS CLERK NURSE
[2021-12-22 21:00] VITALS: BP 108/66
[2021-12-22] MEDS: oxyCODONE/APAP 5/325 MG 1 TAB TAB PO PRN (21:43)
[2021-12-22 22:16] LABS: BARBITURATE, URINE NEGATIVE ng/ml (NEG <=200); BENZODIAZEPINE, URINE NEGATIVE ng/mL (NEG <=200); CANNABINOID, URINE NEGATIVE ng/mL (NEG <=50); COCAINE, URINE NEGATIVE ng/mL (NEG <=300); OPIATE, URINE NEGATIVE ng/mL (NEG <=2000); PHENCYCLIDINE SCREEN,URINE NEGATIVE ng/mL (NEG <=25)
[2021-12-23 05:00] VITALS: BP 95/60
[2021-12-23] MEDS: DEXT 5% /NACL 0.9% 1,000 ML IV SCH ×3 (05:03→23:12)
[2021-12-23 06:29] LABS: BASOPHILS % (AUTO) 0.1 % (0.0-2.0); HEMATOCRIT 31.3 % (36-48); HEMOGLOBIN 10.6 g/dL (12.0-16.0); LYMPHOCYTES # (AUTO) 1.8 K/uL (2.5-16.5); MEAN CORPUSCULAR HEMOGLOBIN 27 pg (27-31); MEAN CORPUSCULAR HGB CONC 34 g/dL (33-37); MONOCYTES # (AUTO) 0.7 K/uL (0.8-1.0); MONOCYTES % (AUTO) 4.6 % (1.7-9.3); NEUTROPHILS # (AUTO) 12.5 K/uL (1.8-7.7); NEUTROPHILS % (AUTO) 83.3 % (42.2-75.2); PLATELET COUNT (AUTO) 383 K/uL (140-450); RED BLOOD CELL COUNT(AUTO) 3.86 MIL/uL (4.20-5.40); RED CELL DISTRIBUTION WIDTH 13.7 % (11.6-13.7)
[2021-12-23 06:38] LABS: ANION GAP 13.6 (8-16); CARBON DIOXIDE 23.6 mmol/L (21-32); CREATININE 0.7 mg/dL (0.6-1.3); POTASSIUM 4.2 mmol/L (3.5-5.1)
[2021-12-23] MEDS ORDERED: PANTOPRAZOLE 40 MG TABEC PO ONE (07:38)
[2021-12-23] MEDS: PANTOPRAZOLE 40 MG TABEC PO SCH (07:39)
[2021-12-23] MEDS: oxyCODONE/APAP 5/325 MG 1 TAB TAB PO PRN ×3 (07:40→23:17)
--- NOTE | 2021-12-23 07:43 | NUR ---
PATIENT COMPLAINT OF PAIN, 2 NORCO GIVEN. WILL CONT TO MONITOR.
--- NOTE | 2021-12-23 11:22 | NUR ---
PATIENT HAS BEEN SCREENED AND CATEGORIZED LOW NUTRITION RISK. PATIENT WILL BE SEEN WITHIN 7 DAYS OF ADMISSION. 12/23/21-12/28/[address]
[2021-12-23] MEDS: LEVOFLOXACIN 750 MG/D5W PREMIX 150 ML IV SCH (12:12)
[2021-12-23 13:00] VITALS: BP 100/60
--- NOTE | 2021-12-23 13:53 | NUR ---
DC PLANNING: CM SPOKE WITH THE PATIENT AT BEDSIDE AND CONFIRMED HER ADDRESS AND PHONE NUMBER. THE PATIENT ADMITTED FROM HOME THROUGH THE ER WITH C/O ABDOMINAL PAIN, HAS H/O DIVERTICULITIS AND OVARIAN CYST. PELVIC US SHOWS LEFT OVARIAN MASS, PATIENT TAKEN FOR REMOVAL OF MASS YESTERDAY, UNABLE TO COMPLETE PROCEDURE BECAUSE OF THICK ADHESIONS OF THE BOWEL TO THE ADNEXA. PLAN TO PROCEED WITH GENERAL SURGERY CONSULT, POSSIBLE SURGERY TODAY. 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 NO ACTIVITY LIMITATIONS OR ISSUES, DCP IS FOR HOME WHEN CLINICALLY STABLE. CM WILL FOLLOW. Addendum: 12/23/21 at 1359 by Julissa Parsons CM Amended: Links added.
--- NOTE | 2021-12-23 15:21 | NUR ---
PATIENT COMPLAINT OF ABDOMEN PAIN, 2 NORCO GIVEN PER ORDER
[2021-12-23 22:23] VITALS: BP 111/69
[2021-12-24 05:19] VITALS: BP 125/70
[2021-12-24 06:39] LABS: BASOPHILS # (AUTO) 0.1 K/uL (0.00-0.22); BASOPHILS % (AUTO) 0.7 % (0.0-2.0); EOSINOPHILS # (AUTO) 0.1 K/uL (0-0.4); EOSINOPHILS % (AUTO) 0.8 % (0.0-4.0); HEMATOCRIT 28.2 % (36-48); HEMOGLOBIN 9.6 g/dL (12.0-16.0); LYMPHOCYTES # (AUTO) 2.9 K/uL (2.5-16.5); LYMPHOCYTES % (AUTO) 34.6 % (20.5-51.1); MEAN CORPUSCULAR HEMOGLOBIN 28 pg (27-31); MEAN CORPUSCULAR HGB CONC 34 g/dL (33-37); MEAN CORPUSCULAR VOLUME 81.8 fL (80-94); MONOCYTES # (AUTO) 0.6 K/uL (0.8-1.0); MONOCYTES % (AUTO) 6.5 % (1.7-9.3); NEUTROPHILS # (AUTO) 4.9 K/uL (1.8-7.7); NEUTROPHILS % (AUTO) 57.4 % (42.2-75.2); PLATELET COUNT (AUTO) 278 K/uL (140-450); RED BLOOD CELL COUNT(AUTO) 3.45 MIL/uL (4.20-5.40); WHITE BLOOD COUNT (AUTO) 8.5 K/uL (4.8-10.8)
[2021-12-24 06:44] LABS: T4 (THYROXINE) 12.4 ug/dL (4.5 - 12.0)
--- NOTE | 2021-12-24 06:55 | NUR ---
pateint sleeps comfortable in her bed. pateint vitals are stable . pateint report was endorsed to charge nurse for continuity of care
[2021-12-24 07:08] LABS: ANION GAP 12.4 (8-16); CARBON DIOXIDE 25.6 mmol/L (21-32); CREATININE 0.6 mg/dL (0.6-1.3)
[2021-12-24] MEDS: DEXT 5% /NACL 0.9% 1,000 ML IV SCH ×2 (07:17→14:07)
--- NOTE | 2021-12-24 07:20 | NUR ---
REPORT RECEIVED FROM PM RN FOR CONTINUITY OF CARE, PT DENIES PAIN, NO ACUTE DISTRESS, VSS, SAFETY MEASURES MAINTAINED, CALL LIGHT WITHIN REACH, WILL CONTINUE TO MONITOR
[2021-12-24 08:00] VITALS: BP 130/86
[2021-12-24] MEDS: ONDANSETRON 4 MG/2 ML VIAL IM/IVP PRN ×2 (08:02→14:07)
[2021-12-24] MEDS: PANTOPRAZOLE 40 MG TABEC PO SCH (08:02)
[2021-12-24] MEDS: oxyCODONE/APAP 5/325 MG 1 TAB TAB PO PRN ×3 (08:02→20:58)
[2021-12-24] MEDS: LEVOFLOXACIN 750 MG/D5W PREMIX 150 ML IV SCH (12:21)
[2021-12-24 13:00] VITALS: BP 128/74
--- NOTE | 2021-12-24 15:25 | NUR ---
PATIENTS IV LEAKING, REMOVED, NEW IV IN RIGHT HAND 22G PLACED - BLOOD RETURN, PATENT, DRESSING DRY AND INTACT
[2021-12-24 20:00] VITALS: BP 116/63
--- NOTE | 2021-12-24 20:00 | NUR ---
RECEIVED BEDSIDE REPORT FROM DAY RN FOR CONTINUITY OF CARE. RECEIVED PATIENT SITTING AT THE EDGE OF THE BED JUST FINISHED HER DINNER. PATIENT MOTHER AT THE BEDSIDE. PATIENT COMPLAINING OF LOWER ABDOMINAL PAIN 6/10 AND REQUESTED FOR PAIN MEDICINE. WILL GIVE PAIN MED ORDERED. 3 TROCHAR SITES WITH DERMABOND ALL CLEAN ,DRY AND INTACT. NO BLEEDING OR OOZING NOTED. IVF INFUSING ORDERED. PATIENT VERBALIZED THAT DR GARCIA IS SUPPOSED TO COME [place] TO SPEAK WITH HER REGARDING OF WHAT DR CHAPPELL DECIDED TO DO FOR HER SURGERY. PT MADE AWARE THAT I'LL PLACED A CALL FOR DR GARCIA. OTHERWISE NO OTHER COMPLAIN AT THIS TIME. CALL LIGHT WITHIN REACH. WILL CONTINUE POC.
--- NOTE | 2021-12-24 20:50 | NUR ---
PLACED A CALL TO DR GARCIA AND SPOKE WITH MD. DR GACRIA NOTIFIED THAT THE PATIENT IS WAITING TO SPEAK WITH HIM REGARDING HER SURGERY WITH DR CHAPPELL. PER DR GARCIA HE HAS A SURGERY TO DO AND WILL COME BY TO THE PATIENT ROOM AND SPEAK WITH HER. RELAY THE MESSAGE TO THE PATIENT AND VERBALIZED UNDERSTANDING.
--- NOTE | 2021-12-24 23:15 | NUR ---
DR GARCIA CAME AND SPOKE WITH THE PATIENT AT THE BEDSIDE.
[2021-12-25] MEDS: DEXT 5% /NACL 0.9% 1,000 ML IV SCH ×2 (00:24→08:22)
--- NOTE | 2021-12-25 01:00 | NUR ---
PATIENT ASLEEP AT THIS TIME. VISIBLE CHEST RISE AND FALL NOTED. WILL CONTINUE OBSERVATION.
--- NOTE | 2021-12-25 02:30 | NUR ---
MADE ROUNDS. PATIENT ASLEEP.CALL LIGHT WITHIN REACH.WILL CONTINUE OBSERVATION.
[2021-12-25 04:00] VITALS: BP 106/60
--- NOTE | 2021-12-25 04:00 | NUR ---
PATIENT VITAL SIGNS STABLE, AFEBRILE, SATING 99% ON RA. DENIES PAIN AT THIS TIME. WILL CONTINUE TO MONITOR.
[2021-12-25 05:59] LABS: BASOPHILS # (AUTO) 0.1 K/uL (0.00-0.22); BASOPHILS % (AUTO) 1.2 % (0.0-2.0); EOSINOPHILS # (AUTO) 0.2 K/uL (0-0.4); HEMOGLOBIN 9.5 g/dL (12.0-16.0); LYMPHOCYTES # (AUTO) 2.6 K/uL (2.5-16.5); LYMPHOCYTES % (AUTO) 34.6 % (20.5-51.1); MEAN CORPUSCULAR HEMOGLOBIN 28 pg (27-31); MEAN CORPUSCULAR HGB CONC 34 g/dL (33-37); MONOCYTES # (AUTO) 0.5 K/uL (0.8-1.0); MONOCYTES % (AUTO) 6.8 % (1.7-9.3); NEUTROPHILS # (AUTO) 4.1 K/uL (1.8-7.7); NEUTROPHILS % (AUTO) 54.4 % (42.2-75.2); PLATELET COUNT (AUTO) 295 K/uL (140-450); RED BLOOD CELL COUNT(AUTO) 3.41 MIL/uL (4.20-5.40); RED CELL DISTRIBUTION WIDTH 13.9 % (11.6-13.7); WHITE BLOOD COUNT (AUTO) 7.5 K/uL (4.8-10.8)
--- NOTE | 2021-12-25 06:23 | NUR ---
NO ACUTE EVENT THROUGHOUT THE NIGHT. PATIENT STABLE. NO SIGN AND SYMPTOMS OF DISTRESS NOTED AT THIS TIME. ALL NEEDS ATTENDED. CALL LIGHT WITHIN REACH. WILL ENDORSE THE PATIENT TO THE ONCOMING RN FOR CONTINUITY OF CARE.
[2021-12-25 06:37] LABS: ANION GAP 11.7 (8-16); CARBON DIOXIDE 28.8 mmol/L (21-32); CREATININE 0.6 mg/dL (0.6-1.3); POTASSIUM 3.5 mmol/L (3.5-5.1)
--- NOTE | 2021-12-25 07:10 | NUR ---
RECEIVED REPORT FROM HEADLINE WRITER NURSE FOR CONTINUITY OF CARE. PT IN BED AT THIS TIME. RESPIRATIONS ARE EVEN AND UNLABORED ON ROOM AIR. NO SIGNS OF DISTRESS NOTED. NO COMPLAINTS OF PAIN OR DISCOMFORT NOTED. CALL LIGHT WITHIN REACH. ALL SAFETY MEASURES IN PLACE. WILL CONTINUE TO MONITOR.
--- NOTE | 2021-12-25 07:47 | NUR ---
ENDORSED PATIENT TO DAY RN FOR CONTINUITY OF CARE. PATIENT STABLE. SIGNING OFF.
[2021-12-25 08:00] VITALS: BP 127/83
[2021-12-25] MEDS: PANTOPRAZOLE 40 MG TABEC PO SCH (08:59)
--- NOTE | 2021-12-25 08:59 | NUR ---
ADMINISTERED ALL SCHEDULED MEDICATIONS. EDUCATED PT REGARDING MEDS ADMINISTERED. PT VERBALIZED UNDERSTANDING. WILL CONTINUE TO MONITOR.
--- NOTE | 2021-12-25 10:29 | NUR ---
DISCHARGE ORDER IN PLACE. PT MADE AWARE. PT STATES THAT SHE WISHES TO DISCHARGE AFTER LUNCH DUE TO THAT IS WHEN SOMEONE WILL BE AVAILABLE TO PICK HER UP. WILL CONTINUE TO MONITOR.
[2021-12-25] MEDS: LEVOFLOXACIN 750 MG/D5W PREMIX 150 ML IV SCH (11:47)
[2021-12-25 12:25] VITALS: BP 127/18
--- NOTE | 2021-12-25 13:05 | NUR ---
WENT OVER DISCHARGE PAPERWORK WITH PT. ANSWERED ALL QUESTIONS. PT SIGNED ALL DISCHARGE PAPERWORK. PT AWAITING RIDE HOME. WILL CONTINUE TO MONITOR.
--- NOTE | 2021-12-25 14:01 | NUR ---
PT DISCHARGED HOME. REMOVED IV. IV CATHETER IN TACT. REMOVED WRIST BAND. ALL BELONGINGS TAKEN UPON DISCHARGE.
== END 2021-12-25 14:50 | disposition home or self-care (01) | DRG 710 ==
LOC: MED 07:17 → MTU 11:53
PROVIDERS: ADMIT Family Medicine; ATTEND Family Medicine
PROC: 0DBU4ZZ Excision of Omentum, Percutaneous Endoscopic Approach (ICD-10-PCS; principal; 2021-12-22 14:00)
DX: A41.9 Sepsis, unspecified organism (principal); E83.39 Other disorders of phosphorus metabolism; E86.0 Dehydration; N83.8 Other noninflammatory disorders of ovary, fallopian tube and broad ligament; K66.0 Peritoneal adhesions (postprocedural) (postinfection); Z20.822 Contact with and (suspected) exposure to COVID-19; Z79.2 Long term (current) use of antibiotics; Z79.899 Other long term (current) drug therapy
CPT/HCPCS: 36415; 76830; 80048; 80053; 80305; 81001; 81025; 82150; 83036; 83690; 83735; 83880; 84100; 84436; 84439; 84443; 84479; 84484; 85025; 85610; 85730; 86886; 86900; 86901; 87081; 96361; 96374; 99285; J1100; J1170; J1885; J1956; J2270; J2405; J3010; J3490; J7030; J7042; J7120; Q0092

== ENCOUNTER 2022-02-19 17:36 | Inpatient (IN) | payer MEDICAID ==
[~2022-02-19] VITALS: Ht 160 cm; Wt 78.5 kg
[~2022-02-19 17:36] MED LIST changes: -CIPR500T4 PO; -METR-520 PO
[2022-02-19 17:54] VITALS: BP 136/81
[2022-02-19] MEDS ORDERED: ONDANSETRON 4 MG TAB PO ONE ×2 (18:00→18:40)
[2022-02-19] MEDS ORDERED: NACL 0.9% 1,000 ML IV ONE ×2 (18:05→19:55)
[2022-02-19] MEDS ORDERED: MORPHINE SULFATE 4 MG/ML SYR IVP ONE ×2 (18:05→20:35)
--- NOTE | 2022-02-19 18:07 | NUR ---
22 Y/O FEMALE C/O EPIGASTRIC ABD PAIN 08/11 WITH N/V X2DAYS. PT STATES SHE HAS SUBJECTIVE FEVER YESTERDAY. PT LAST BLM WAS TODAY. PT DENIES DIARRHEA/ CONSTIPATION. DENIES FEVER OR CHILLS. PT DENIES CHEST PAIN/SOB.PT IS ALERT AND ORIENTED X4. BED IN LOWEST POSITION. BED RAILX1. PMH: DIVERTICULITIS, ANEMIA, ENDOMETRIOSIS NKA
[2022-02-19] MEDS ORDERED: MORPHINE SULFATE 4 MG/ML SYR ONE (18:08)
--- NOTE | 2022-02-19 18:09 | NUR ---
LAB AT PT BEDSIDE
[2022-02-19 18:15] LABS: BASOPHILS # (AUTO) 0.1 K/uL (0.00-0.22); BASOPHILS % (AUTO) 0.4 % (0.0-2.0); EOSINOPHILS % (AUTO) 0.1 % (0.0-4.0); HEMATOCRIT 32.7 % (36-48); LYMPHOCYTES # (AUTO) 1.8 K/uL (2.5-16.5); LYMPHOCYTES % (AUTO) 10.9 % (20.5-51.1); MEAN CORPUSCULAR HEMOGLOBIN 28 pg (27-31); MEAN CORPUSCULAR HGB CONC 34 g/dL (33-37); MEAN CORPUSCULAR VOLUME 82.1 fL (80-94); MONOCYTES # (AUTO) 0.7 K/uL (0.8-1.0); MONOCYTES % (AUTO) 4.1 % (1.7-9.3); NEUTROPHILS # (AUTO) 13.7 K/uL (1.8-7.7); NEUTROPHILS % (AUTO) 84.5 % (42.2-75.2); PLATELET COUNT (AUTO) 419 K/uL (140-450); RED BLOOD CELL COUNT(AUTO) 3.99 MIL/uL (4.20-5.40); RED CELL DISTRIBUTION WIDTH 13.9 % (11.6-13.7); WHITE BLOOD COUNT (AUTO) 16.2 K/uL (4.8-10.8)
[2022-02-19 18:30] LABS: ALBUMIN 3.4 g/dL (3.4-5.0); ANION GAP 14.2 (8-16); CREATININE 0.9 mg/dL (0.6-1.3); POTASSIUM 3.2 mmol/L (3.5-5.1); TOTAL BILIRUBIN 0.6 mg/dL (0.0-1.0)
[2022-02-19] MEDS: ONDANSETRON 4 MG/2 ML VIAL IVP ONE ×2 (18:34→18:39)
--- NOTE | 2022-02-19 18:46 | NUR ---
CT CONSENT SIGNED AND PLACED INTO PATIENT CHART
--- NOTE | 2022-02-19 19:15 | NUR ---
PT TAKEN TO CT VIA W/C
--- NOTE | 2022-02-19 19:21 | NUR ---
Pt report given to DOC TURNER. Transfer of care at this time.
--- NOTE | 2022-02-19 19:34 | NUR ---
PT RETURN FROM CT
[2022-02-19] MEDS ORDERED: PIPERACILLIN/TAZOBACTAM 3.375 GM in DEXTROSE 5% 50 ML IV ONE (19:55)
--- NOTE | 2022-02-19 20:05 | NUR ---
LAB AT BEDSIDE
[2022-02-19] MEDS ORDERED: PIPERACILLIN/TAZOBACTAM 3.375 GM VIAL IV ONE (20:10)
--- NOTE | 2022-02-19 20:13 | NUR ---
Dr. Smith examining patient.
--- NOTE | 2022-02-19 20:15 | NUR ---
ANASTACIO COLLECTED AND WALKED TO LAB
--- NOTE | 2022-02-19 20:35 | NUR ---
MOTHER AT BEDSIDE, BED LOW AND LOCKED. ALL NEEDS MET
[2022-02-19] MEDS ORDERED: MORPHINE SULFATE 4 MG/ML SYR IVP PRN (20:40)
[2022-02-19] MEDS ORDERED: NACL 0.9% 1,000 ML IV SCH (20:40)
--- NOTE | 2022-02-19 20:45 | NUR ---
PATIENT C/O PAIN AT THIS TIME. MADE AWARE
--- NOTE | 2022-02-19 20:51 | NUR ---
PATIENT AMBULATED TO THE RR
--- NOTE | 2022-02-19 20:54 | NUR ---
PATIENT AMBULATED BACK TO BED 7
[2022-02-19 21:19] LABS: PROTHROMBIN TIME 11.1 secs (10.8-13.4)
[2022-02-19] MEDS: metroNIDAZOLE 500 MG/NS PREMIX 100 ML IV SCH (21:22)
[2022-02-19] MEDS ORDERED: OXYC40TA PO (21:22)
[2022-02-19] MEDS: NACL 0.9% 1,000 ML IV SCH (21:27)
--- NOTE | 2022-02-19 21:51 | NUR ---
Patient will be admitted to care of Brett OLIVARES. Admited to ICU. Will go to bed 5. Belongings list completed. Report to Reece GOINS.
--- NOTE | 2022-02-19 22:11 | NUR ---
pt tx to ICU via manav
--- NOTE | 2022-02-19 22:15 | NUR ---
Patient will be admitted to care of Sudhir West MD. Admited to ICU. Will go to room 5. Belongings list completed. Report to BUSTER Nye.
--- NOTE | 2022-02-19 22:20 | NUR ---
RECEIVED REPORT VIA TELEPHONE FROM LAUNDRY PRESS OPERATORASW/ASUW TACTICAL AIR CONTROLLERFELT PULLER. PT CAME FROM HOME WITH A CHIEF COMPLAINT OF SHARP ABD PAIN / WITH N/V X3DAYS. PT STATED ABD PAIN STARTED ON 02/19/22 WITH N/V GOING ON SINCE 02/17/22. ABD IS ROUND AND TENDER WITH PAIN ON PALPATION. HYPO ACTIVE BOWEL SOUNDS IN ALL FOUR QUADS. PT STATES APPETITE CHANGES WITHIN THE LAST WEEK. PT IS A0X4 AND ABLE TO LET NEEDS KNOWN. 20G TO RIGHT AC, PATENT AND INTACT, RUNNING NS @80ML/HR. PT ABLE TO AMBULATE TO BEDSIDE COMMODE WITH ASSISTANCE. INITIAL ASSESSMENT COMPLETED. SAFETY MEASURES IN PLACE. WILL CONTINUE TO MONITOR.
--- NOTE | 2022-02-19 22:38 | NUR ---
The patient's care was reviewed and supervised by Gissel Pedro RN.
[2022-02-19 23:00] VITALS: BP 139/72
[2022-02-19] MEDS: ONDANSETRON 4 MG/2 ML VIAL IVP PRN (23:00)
[2022-02-20] VITALS (13 sets, daily range): BP systolic 124–159; BP diastolic 70–93
[2022-02-20] MEDS ORDERED: PIPERACILLIN/TAZOBACTAM 3.375 GM VIAL IV ONE ×2 (00:24→05:33)
--- NOTE | 2022-02-20 00:25 | NUR ---
AT BEDSIDE TO DISCUSS FURTHER PT PLAN OF CARE.
[2022-02-20] MEDS ORDERED: KCL 20 MEQ/WATER INJ PREMIX 200 ML IV SCH (00:40)
--- NOTE | 2022-02-20 00:46 | NUR ---
DR GARCIA IN THE UNIT; MADE AWARE OF K 3.2; TO GIVE 40 MEQ K RIDER X 1 DOSE; ALSO PER DR GARCIA; TO CONSULT DR CHAPPELL, MEDICAL TERMINOLOGIST
[2022-02-20] MEDS: metroNIDAZOLE 500 MG/NS PREMIX 100 ML IV SCH ×3 (05:00→20:34)
[2022-02-20 05:24] LABS: BASOPHILS # (AUTO) 0.1 K/uL (0.00-0.22); BASOPHILS % (AUTO) 0.6 % (0.0-2.0); EOSINOPHILS % (AUTO) 0.1 % (0.0-4.0); HEMATOCRIT 25.3 % (36-48); HEMOGLOBIN 8.7 g/dL (12.0-16.0); LYMPHOCYTES # (AUTO) 1.6 K/uL (2.5-16.5); LYMPHOCYTES % (AUTO) 15.6 % (20.5-51.1); MEAN CORPUSCULAR HEMOGLOBIN 29 pg (27-31); MEAN CORPUSCULAR HGB CONC 35 g/dL (33-37); MEAN CORPUSCULAR VOLUME 83.1 fL (80-94); MONOCYTES # (AUTO) 0.7 K/uL (0.8-1.0); MONOCYTES % (AUTO) 6.7 % (1.7-9.3); NEUTROPHILS # (AUTO) 7.8 K/uL (1.8-7.7); PLATELET COUNT (AUTO) 321 K/uL (140-450); RED BLOOD CELL COUNT(AUTO) 3.04 MIL/uL (4.20-5.40); RED CELL DISTRIBUTION WIDTH 14.2 % (11.6-13.7); WHITE BLOOD COUNT (AUTO) 10.2 K/uL (4.8-10.8)
[2022-02-20 06:02] LABS: ALBUMIN 2.7 g/dL (3.4-5.0); CARBON DIOXIDE 24.1 mmol/L (21-32); CREATININE 0.8 mg/dL (0.6-1.3); PHOSPHORUS 4.5 mg/dL (2.5-4.9); POTASSIUM 3.1 mmol/L (3.5-5.1); TOTAL BILIRUBIN 0.5 mg/dL (0.0-1.0)
[2022-02-20] MEDS: PIPERACILLIN/TAZOBACTAM 3.375 GM in DEXTROSE 5% 50 ML IV SCH ×5 (06:43→17:20)
[2022-02-20] MEDS ORDERED: MORPHINE SULFATE 2 MG/ML SYR IVP PRN (07:05)
--- NOTE | 2022-02-20 07:30 | NUR ---
RECEIVED REPORT FROM CAROLE. PT IS AWAKE ALERT WELL ORIENTED, ABLE TO MOVE AROUND THE BED IV FLUID ON RT AC INFUSING NS 80 ML/HR SKIN DRY WARM TO TOUCH, COLOR NORMAL , SKIN INTACT .
--- NOTE | 2022-02-20 08:50 | NUR ---
SEEN BY DR. CALDWELL , NO ORDER CHANGED,DR. CALDWELL WILL FOLLOW UP AND TALK TO SHOPPER REGARDING SURGERY ISSUE.,
--- NOTE | 2022-02-20 09:00 | NUR ---
SEEN BY SUDEEP BRAND ORDER RECEIVED ,WILL TALK TO REGARDING DOWNGRADE TO TELE..
--- NOTE | 2022-02-20 09:09 | NUR ---
PATIENT HAS BEEN SCREENED AND CATEGORIZED HIGH NUTRITION RISK. PATIENT WILL BE SEEN WITHIN 1-2 DAYS OF ADMISSION. REFERRAL RECEIVED FOR NAUSEA AND VOMITING OVER THREE DAYS [address]
[2022-02-20] MEDS: NACL 0.9% 1,000 ML IV SCH ×2 (09:27→21:40)
[2022-02-20] MEDS ORDERED: POTASSIUM CHLORIDE 10 MEQ TABER PO SCH (10:00)
--- NOTE | 2022-02-20 10:47 | NUR ---
SEEN BY DR. BARNES ORDER RECEIVED. PT. WIII BE DOWNGRADE TO TELE.
[2022-02-20] MEDS: HYDROcodone/APAP 5/325 MG 1 TAB TAB PO PRN (11:04)
--- NOTE | 2022-02-20 11:50 | NUR ---
CALL GIVE REPORT TO LASHAY , PATIENT WILL TRANSFER TO RM 106A.
--- NOTE | 2022-02-20 13:30 | NUR ---
PT TRANSFERRED FROM ICU. PT IS ALERT AND ORIENTED X4. ABLE TO VERBALIZE NEEDS AND FOLLOW COMMANDS. RESPIRATIONS ARE EVEN AND UNLABORED ON ROOM AIR. NO SIGNS OF DISTRESS NOTED. ABD IS NONTENDER, NONDISTENDED WITH BOWEL SOUNDS PRESENT. PT IS CURRENTLY NPO EXCEPT FOR MEDS. PT AMBULATES INDEPENDENTLY. NO LIMITATIONS NOTED. SKIN IS WARM, DRY, AND INTACT. PT HAS IV TO R AC, 20G. INTACT AND PATENT. NO COMPLAINTS OF PAIN OR DISCOMFORT AT THIS TIME. ORIENTED PT TO ROOM AND CALL LIGHT SYSTEM. CALL LIGHT WITHIN REACH. ALL SAFETY MEASURES IN PLACE. WILL CONTINUE TO MONITOR.
--- NOTE | 2022-02-20 14:07 | NUR ---
02/20/22 RD INITIAL ASSESSMENT COMPLETED PLEASE REFER TO NUTRITION ASSESSMENT UNDER CARE ACTIVITY FOR ESTIMATED NUTRITIONAL NEEDS. 1. WHEN/IF MEDICALLY APPROPRIATE TO START ORAL INTAKE, RECOMMEND CLEAR LIQUID DIET AND ADVANCE TO REGULAR DIET TOLERATED -RECOMMEND LOW-FIBER DIET AND GRADUALLY INCREASE FIBER INTAKE 2. MONITOR GI SYMPTOMS 3. RD TO FOLLOW-UP 3-5 DAYS, MODERATE RISK GIOVANNA ELIZALDE RD
[2022-02-20] MEDS ORDERED: METOCLOPRAMIDE 10 MG/2 ML INJ VIAL IVP SCH (15:00)
--- NOTE | 2022-02-20 15:00 | NUR ---
DC [age] YRS OLD FEMALE PATIENT WAS ADMITTED FROM HOME WITH A DX OF DIVERTICULITIS. PATIENT HAS A HX OF LAPAROTOMY OVARIAN CYST WAS DONE AT [facility] BY DR CHAPPELL ON 12/22/21. CT ABD/PELVIS SHOWED SIGMOID DIVERTICULITIS (WITH MICROPERFORATION) SMALL PELVIC FLUID. US PELVIC SHOWED COMPLEX CYSTIC MASS OF THE LEFT ADNEXA. ADMINISTERED IVF, IV ABX ZOSYN. CONSULTED WITH SURGEON DR CALDWELL AND LOG BUYER DR CHAPPELL. DC PLAN TO GO HOME WHEN STABLE. CM TO FOLLOW
--- NOTE | 2022-02-20 15:01 | NUR ---
DC PLANNING PATIENT IS A 22 YR OLD FEMALE WHO ARRIVED AT [facility]/ED FOR ABDOMINAL PAIN LAST OVER THREE DAYS. SW MET WITH PATIENT AT BEDSIDE FOR THE PURPOSE OF DISCUSSING AND GATHERING COLLATERAL INFORMATION. PATIENT REPORTS LIVING AT HOME WITH HER PARENTS, SIBLINGS AND GRANDPARENTS. PATIENT REPORTS EMERGENCY CONTACT AND MEDICAL DECISION MAKER TIMOTHY KITCHEN [phone]. SW INQUIRED ON AD;PATIENT DENIED CURRENTLY HAVING ONE IN PLACE. SW PROVIDER PATIENT WITH INFORMATION ON AD, PATIENT WAS RECEPTIVE AND ACCEPTED A.D PACKET PROVIDED BY [facility]. PATIENT REPORTS BEING INDEPENDENT. PATIENT REPORTS MEETING WITH PCP ( DR SANDERSON) AT [facility] WHEN NEED. PATIENT DENIES BARRIERS IN ACCESSING MEDICATION AND ACQUIRES MEDICATION FROM [facility] IN [place], WHEN NEEDED. PATIENT REPORTS ADEQUATE FRIEND AND FAMILY SUPPORT AND REPORTS THAT ONCE CLEARED FOR DISCHARGE FAMILY WILL BE PICKING UP AND AIDING IN CARE, IF NEEDED. PATIENTS PLAN IS TO DC HOME. SW INQUIRED ON ADDITIONAL RESOURCES NEEDED; PATIENT DECLINED AT THIS TIME. SW WILL FOLLOW UP NEEDED.
--- NOTE | 2022-02-20 15:41 | NUR ---
PT NOTIFIED STAFF THAT SHE IS TAKING ORAL CONTRACEPTIVES. STATES SHE STARTED TAKING THEM 2-3 MONTHS AGO. STATES LAST DOSE TAKEN WAS YESTERDAY BEFORE HOSPITALIZATION. DR BARNES MADE AWARE. WILL CONTINUE TO MONITOR.
[2022-02-20] MEDS: ACETAMINOPHEN 325 MG TAB PO PRN (15:48)
--- NOTE | 2022-02-20 15:48 | NUR ---
PT COMPLAINING OF HEADACHE. MEDICATED WITH TYLENOL. WILL CONTINUE TO MONITOR.
--- NOTE | 2022-02-20 17:06 | NUR ---
DID ROUNDS ON PT. PT IN BED SLEEPING AT THIS TIME. RESPIRATIONS ARE EVEN AND UNLABORED ON ROOM AIR. NO SIGNS OF DISTRESS NOTED. NO SIGNS OF PAIN OR DISCOMFORT AT THIS TIME. WILL CONTINUE TO MONITOR.
--- NOTE | 2022-02-20 17:20 | NUR ---
PT WAS GIVEN IVPB ZOSYN NOW, PT IS AWAKE, ALERT AND ORIENTED AND TALKING TO FAMILY MEMBER ON BEDSIDE.
--- NOTE | 2022-02-20 19:15 | NUR ---
ENDORSED PT TO FINAL ASSEMBLY INSPECTOR NURSE FOR CONTINUITY OF CARE. ALL NEEDS MET THROUGHOUT SHIFT. PT IS STABLE.
--- NOTE | 2022-02-20 20:18 | NUR ---
RECEIVED REPORT FROM AM NURSE. PATIENT IN BED WELL RESTED. ON ROOM AIR. IVF NS INFUSING AT 80 ML/HR TOLERATING WELL. NO SOB NOTED. NO COMPLAINTS OF PAIN AT THIS TIME. SAFETY MEASURES IN PLACE. CALL LIGHT WITHIN REACH. VISITOR AT BEDSIDE. WILL CONTINUE TO MONITOR.
--- NOTE | 2022-02-20 20:34 | NUR ---
SCHEDULED MEDICATION ADMINISTERED ORDERED.
[2022-02-20] MEDS: ONDANSETRON 4 MG/2 ML VIAL IVP PRN (20:58)
--- NOTE | 2022-02-20 20:58 | NUR ---
COMPLAINED OF NAUSEA, MEDICATED WITH ZOFRAN PRN.
[2022-02-21] VITALS: BP 138/91
[2022-02-21] MEDS: PIPERACILLIN/TAZOBACTAM 3.375 GM in DEXTROSE 5% 50 ML IV SCH ×3 (00:41→12:14)
--- NOTE | 2022-02-21 01:21 | NUR ---
ROUNDED PATIENT, PT IS SLEEPING. NO S/S OF RESPIRATORY DISTRESS. CHEST RISE AND FALL SYMMETRICALLY. CALL LIGHT WITHIN REACH.
[2022-02-21] MEDS: NACL 0.9% 1,000 ML IV SCH ×4 (03:46→22:40)
[2022-02-21 04:00] VITALS: BP 141/87
--- NOTE | 2022-02-21 04:41 | NUR ---
ADMINISTERED SCHEDULED FLAGYL IVPB.
[2022-02-21] MEDS: metroNIDAZOLE 500 MG/NS PREMIX 100 ML IV SCH (04:43)
--- NOTE | 2022-02-21 05:55 | NUR ---
ADMINISTERED ZOSYN SCHEDULED DUE
[2022-02-21 06:45] LABS: ANION GAP 15.2 (8-16); CARBON DIOXIDE 23.7 mmol/L (21-32); CREATININE 0.7 mg/dL (0.6-1.3)
[2022-02-21 06:52] LABS: POTASSIUM 2.9 mmol/L (3.5-5.1)
--- NOTE | 2022-02-21 06:52 | NUR ---
RECEIVED A CALL FROM [facility] REPORTING CRITICAL LAB RESULTS. CARMEN SPANN NOTIFIED. AWAITING FOR ORDERS.
[2022-02-21 06:54] LABS: BASOPHILS # (AUTO) 0.1 K/uL (0.00-0.22); BASOPHILS % (AUTO) 0.7 % (0.0-2.0); EOSINOPHILS % (AUTO) 0.5 % (0.0-4.0); HEMATOCRIT 24.5 % (36-48); HEMOGLOBIN 8.3 g/dL (12.0-16.0); LYMPHOCYTES % (AUTO) 22.6 % (20.5-51.1); MEAN CORPUSCULAR HEMOGLOBIN 28 pg (27-31); MEAN CORPUSCULAR HGB CONC 34 g/dL (33-37); MEAN CORPUSCULAR VOLUME 83.1 fL (80-94); MONOCYTES # (AUTO) 0.7 K/uL (0.8-1.0); MONOCYTES % (AUTO) 7.6 % (1.7-9.3); NEUTROPHILS % (AUTO) 68.6 % (42.2-75.2); PLATELET COUNT (AUTO) 282 K/uL (140-450); RED BLOOD CELL COUNT(AUTO) 2.95 MIL/uL (4.20-5.40); RED CELL DISTRIBUTION WIDTH 13.7 % (11.6-13.7); WHITE BLOOD COUNT (AUTO) 8.7 K/uL (4.8-10.8)
--- NOTE | 2022-02-21 07:20 | NUR ---
BEDSIDE ENDORSEMENT GIVEN TO AM NURSE FOR CONTINUITY OF CARE. PATIENT IS STABLE. ENDORSED TO AM SHIFT TO FOLLOW UP WITH MD REGARDING CRITICAL LAB RESULT OF POTASSIUM.
--- NOTE | 2022-02-21 07:25 | NUR ---
RECEIVED REPORT FROM ROUTE SALES DELIVERY DRIVER NURSE FOR CONTINUITY OF CARE. PATIENT IN BED WELL RESTED, ABLE TO MAKE NEEDS KNOWN. ON ROOM AIR. SKIN IS WARM, DRY, AND INTACT. IVF NS INFUSING AT 80 ML/HR TOLERATING WELL. IV INTACT AND PATENT. NO COMPLAINTS OF PAIN AT THIS TIME. PLAN OF CARE DISCUSSED. SAFETY MEASURES IN PLACE. CALL LIGHT WITHIN REACH. VISITOR AT BEDSIDE. WILL CONTINUE TO MONITOR.
[2022-02-21] MEDS ORDERED: KCL 20 MEQ/WATER INJ PREMIX 200 ML IV ONE (07:45)
[2022-02-21] MEDS ORDERED: POTASSIUM CHLORIDE 10 MEQ TABER PO PRN (07:45)
[2022-02-21] MEDS ORDERED: POTASSIUM CHLORIDE 10 MEQ TABER PO SCH (07:56)
[2022-02-21 08:00] VITALS: BP 145/89
[2022-02-21] MEDS: ACETAMINOPHEN 325 MG TAB PO PRN ×2 (08:20→15:16)
--- NOTE | 2022-02-21 08:45 | NUR ---
ALL SCHEDULED MEDS GIVEN. PT IS STABLE. NO DISTRESS NOTED. WILL CONTINUE TO MONITOR.
--- NOTE | 2022-02-21 11:58 | NUR ---
CHECKED ON PATIENT. PT IS STABLE. NO DISTRESS NOTED. WILL CONTINUE TO MONITOR.
[2022-02-21 12:00] VITALS: BP 149/94
--- NOTE | 2022-02-21 15:16 | NUR ---
PATIENT C/C OF LOWER BACK PAIN 01/09. ADMINISTERED PRN PAIN MEDS PER MD ORDERED.
[2022-02-21 16:00] VITALS: BP 146/105
[2022-02-21] MEDS: HYDROcodone/APAP 5/325 MG 1 TAB TAB PO PRN (16:46)
--- NOTE | 2022-02-21 16:46 | NUR ---
PATIENT COMPLAINED OF LOWER PELVIS PAIN 5/10. ADMINISTERED PRN PAIN MEDS PER MD ORDERED.
[2022-02-21] MEDS ORDERED: amLODIPine 5 MG TAB PO SCH (17:00)
[2022-02-21] MEDS: metroNIDAZOLE 500 MG TAB PO SCH (17:55)
--- NOTE | 2022-02-21 19:20 | NUR ---
ENDORSED TO PLANETARIUM TECHNICIAN NURSE FOR CONTINUITY OF CARE. PT IS STABLE.
--- NOTE | 2022-02-21 19:21 | NUR ---
RECEIVED BEDSIDE REPORT FROM AM NURSE. PATIENT IS AAOX4 SITTING ON THE BED ON ROOM AIR. NO SOB NOTED. IVF NS INFUSING AT 80 ML/HR. NO COMPLAINTS OF PAIN AT THIS TIME. SAFETY MEASURES IN PLACE. CALL LIGHT WITHIN REACH. MOTHER AT BEDSIDE. WILL CONTINUE TO MONITOR PT.
--- NOTE | 2022-02-21 20:42 | NUR ---
ROCEPHIN IVPB ADMINISTERED ORDERED.
[2022-02-21] MEDS: ONDANSETRON 4 MG/2 ML VIAL IVP PRN (23:26)
[2022-02-22] VITALS: BP 143/89
[2022-02-22] MEDS: NACL 0.9% 1,000 ML IV SCH ×2 (01:02→11:30)
--- NOTE | 2022-02-22 05:35 | NUR ---
PATIENT IS SLEEPING. CHEST RISE AND FALL SYMMETRICALLY. CALL LIGHT WITHIN REACH.
[2022-02-22 06:43] LABS: ANION GAP 13.7 (8-16); CARBON DIOXIDE 25.4 mmol/L (21-32); CREATININE 0.8 mg/dL (0.6-1.3); POTASSIUM 3.1 mmol/L (3.5-5.1)
[2022-02-22 07:20] LABS: BASOPHILS # (AUTO) 0.1 K/uL (0.00-0.22); BASOPHILS % (AUTO) 0.9 % (0.0-2.0); EOSINOPHILS # (AUTO) 0.1 K/uL (0-0.4); EOSINOPHILS % (AUTO) 0.7 % (0.0-4.0); HEMATOCRIT 27.9 % (36-48); HEMOGLOBIN 9.6 g/dL (12.0-16.0); LYMPHOCYTES # (AUTO) 1.6 K/uL (2.5-16.5); LYMPHOCYTES % (AUTO) 17.8 % (20.5-51.1); MEAN CORPUSCULAR HEMOGLOBIN 28 pg (27-31); MEAN CORPUSCULAR HGB CONC 34 g/dL (33-37); MONOCYTES # (AUTO) 0.7 K/uL (0.8-1.0); MONOCYTES % (AUTO) 7.7 % (1.7-9.3); NEUTROPHILS # (AUTO) 6.7 K/uL (1.8-7.7); NEUTROPHILS % (AUTO) 72.9 % (42.2-75.2); PLATELET COUNT (AUTO) 358 K/uL (140-450); RED CELL DISTRIBUTION WIDTH 13.8 % (11.6-13.7); WHITE BLOOD COUNT (AUTO) 9.1 K/uL (4.8-10.8)
--- NOTE | 2022-02-22 07:38 | NUR ---
PATIENT IS STABLE. ENDORSED TO AM NURSE FOR CONTINUITY OF CARE.
--- NOTE | 2022-02-22 07:40 | NUR ---
RECEIVED REPORT FROM WHALE FISHERMAN NURSE FOR CONTINUITY OF CARE. PATIENT IN BED WELL RESTED, ABLE TO MAKE NEEDS KNOWN. ON ROOM AIR. SKIN IS WARM, DRY, AND INTACT. IVF NS INFUSING AT 80 ML/HR TOLERATING WELL. IV INTACT AND PATENT. NO COMPLAINTS OF PAIN AT THIS TIME. PLAN OF CARE DISCUSSED. SAFETY MEASURES IN PLACE. CALL LIGHT WITHIN REACH. VISITOR AT BEDSIDE. WILL CONTINUE TO MONITOR.
[2022-02-22 08:00] VITALS: BP 140/85
[2022-02-22] MEDS: metroNIDAZOLE 500 MG TAB PO SCH ×3 (08:33→16:30)
--- NOTE | 2022-02-22 08:55 | NUR ---
ALL SCHEDULED MEDS GIVEN. PT IS STABLE. NO DISTRESS NOTED. WILL CONTINUE TO MONITOR.
--- NOTE | 2022-02-22 12:45 | NUR ---
ALL SCHEDULED MEDS GIVEN. PT IS STABLE. NO DISTRESS NOTED. WILL CONTINUE TO MONITOR.
--- NOTE | 2022-02-22 15:19 | NUR ---
CHECKED ON PATIENT. PATIENT IS STABLE. NO DISTRESS NOTED. WILL CONTINUE TO MONITOR.
[2022-02-22 16:00] VITALS: BP 141/96
[2022-02-22] MEDS: ONDANSETRON 4 MG/2 ML VIAL IVP PRN (16:31)
--- NOTE | 2022-02-22 16:32 | NUR ---
ALL SCHEDULED MEDS GIVEN. PT IS STABLE. NO DISTRESS NOTED. WILL CONTINUE TO MONITOR.
[2022-02-22 18:24] LABS: BARBITURATE, URINE NEGATIVE ng/ml (NEG <=200); BENZODIAZEPINE, URINE NEGATIVE ng/mL (NEG <=200); CANNABINOID, URINE NEGATIVE ng/mL (NEG <=50); COCAINE, URINE NEGATIVE ng/mL (NEG <=300); OPIATE, URINE NEGATIVE ng/mL (NEG <=2000); PHENCYCLIDINE SCREEN,URINE NEGATIVE ng/mL (NEG <=25)
--- NOTE | 2022-02-22 19:28 | NUR ---
ENDORSED TO RESEARCH NUTRITIONIST NURSE FOR CONTINUITY OF CARE. PT IS STABLE.
--- NOTE | 2022-02-22 19:45 | NUR ---
C/O PAIN - WILL MEDICATE .
[2022-02-22 20:00] VITALS: BP 130/84
[2022-02-22] MEDS: HYDROcodone/APAP 5/325 MG 1 TAB TAB PO PRN (20:16)
--- NOTE | 2022-02-23 | NUR ---
ROUNDS , NO COMPLAIN MADE .
--- NOTE | 2022-02-23 02:00 | NUR ---
SLEEPING . CALL LIGHT WITHIN REACH .
--- NOTE | 2022-02-23 06:00 | NUR ---
NO COMPLAIN MADE .
[2022-02-23 06:48] LABS: BASOPHILS # (AUTO) 0.1 K/uL (0.00-0.22); EOSINOPHILS # (AUTO) 0.1 K/uL (0-0.4); EOSINOPHILS % (AUTO) 1.5 % (0.0-4.0); HEMATOCRIT 27.9 % (36-48); HEMOGLOBIN 9.5 g/dL (12.0-16.0); LYMPHOCYTES # (AUTO) 2.2 K/uL (2.5-16.5); LYMPHOCYTES % (AUTO) 30.2 % (20.5-51.1); MEAN CORPUSCULAR HEMOGLOBIN 28 pg (27-31); MEAN CORPUSCULAR HGB CONC 34 g/dL (33-37); MEAN CORPUSCULAR VOLUME 81.3 fL (80-94); MONOCYTES # (AUTO) 0.6 K/uL (0.8-1.0); MONOCYTES % (AUTO) 8.6 % (1.7-9.3); NEUTROPHILS # (AUTO) 4.3 K/uL (1.8-7.7); NEUTROPHILS % (AUTO) 58.7 % (42.2-75.2); PLATELET COUNT (AUTO) 398 K/uL (140-450); RED BLOOD CELL COUNT(AUTO) 3.43 MIL/uL (4.20-5.40); RED CELL DISTRIBUTION WIDTH 13.9 % (11.6-13.7); WHITE BLOOD COUNT (AUTO) 7.4 K/uL (4.8-10.8)
--- NOTE | 2022-02-23 07:18 | NUR ---
ENDORSED - PT - STABLE . I ENDORSED TO BUSTER GÓMEZ SHE HAVE TO CLARIFY TO DR. CREWS IF THE OB GYNE CERTIFIED PHYSICIAN'S ASSISTANT IS DR. CHAPPELL OR AMADO , AND FF UP U/A RESULT AND AM LABS - NURSE MONIKA VERBALIZES UNDERSTANDING .
[2022-02-23 07:33] LABS: ANION GAP 13.4 (8-16); CARBON DIOXIDE 28.6 mmol/L (21-32); CREATININE 0.8 mg/dL (0.6-1.3)
[2022-02-23 07:36] LABS: MAGNESIUM 1.5 mg/dL (1.8-2.4); PHOSPHORUS 4.7 mg/dL (2.5-4.9)
[2022-02-23 08:00] VITALS: BP 140/99
[2022-02-23] MEDS: metroNIDAZOLE 500 MG TAB PO SCH (08:37)
[2022-02-23] MEDS: HYDROcodone/APAP 5/325 MG 1 TAB TAB PO PRN (08:38)
--- NOTE | 2022-02-23 08:41 | NUR ---
RECEIVED ENDORSEMENT FROM PM SHIFT NURSE THAT PATIENT IS REST ON BED W/ PIV RAC 20G PATIENT IV INFUSING. STABLE AT THE TIME
[2022-02-23] MEDS ORDERED: AMOX1TAB8 PO (10:44)
[2022-02-23] MEDS ORDERED: LACT10CA1 PO (10:44)
[2022-02-23] MEDS: ONDANSETRON 4 MG/2 ML VIAL IVP PRN (12:02)
--- NOTE | 2022-02-23 12:07 | NUR ---
D/C PATIENT IN STABLE CONDITION, NAME BAND & IV REMOVE, CONSENT SIGN. PATIENT IS GOING TO F/U W/ HER OWN OBGEY DOCTOR
== END 2022-02-23 12:05 | disposition home or self-care (01) | DRG 720 ==
LOC: MED 17:36 → MTU 20:44 → MIC 21:03 → MTU 02-20 13:50
PROVIDERS: ADMIT Student in an Organized Health Care Education/Training Program; ATTEND Student in an Organized Health Care Education/Training Program
DX: A41.9 Sepsis, unspecified organism (principal); E43 Unspecified severe protein-calorie malnutrition; K57.20 Diverticulitis of large intestine with perforation and abscess without bleeding; R16.0 Hepatomegaly, not elsewhere classified; N13.30 Unspecified hydronephrosis; C56.2 Malignant neoplasm of left ovary; E87.6 Hypokalemia; Z20.822 Contact with and (suspected) exposure to COVID-19; N83.202 Unspecified ovarian cyst, left side; N70.92 Oophoritis, unspecified; D64.9 Anemia, unspecified; N73.9 Female pelvic inflammatory disease, unspecified; E83.42 Hypomagnesemia; Z79.899 Other long term (current) drug therapy; Z68.30 Body mass index [BMI] 30.0-30.9, adult
CPT/HCPCS: 36415; 76856; 80048; 80053; 80305; 81025; 83605; 83690; 83735; 84100; 85025; 85610; 85730; 86886; 86900; 86901; 87040; 87081; 96361; 96365; 96375; 99291; J0696; J2270; J2405; J2543; J2765; J3480; J3490; J7030; J7060; Q0092; Q0162; Q9967

== ENCOUNTER 2023-04-07 14:15 | Emergency (ER) | payer MEDICAID ==
[~2023-04-07] VITALS: Ht 167.6 cm; Wt 86.2 kg
[~2023-04-07 14:15] MED LIST changes: +AMOX1TAB8 PO; +OXYC40TA3 PO
[2023-04-07 14:21] VITALS: BP 128/80
[2023-04-07] MEDS ORDERED: HYDROcodone/APAP 5/325 MG 1 TAB TAB PO ONE (15:00)
[2023-04-07] MEDS ORDERED: NACL 0.9% 1,000 ML IV ONE (15:00)
[2023-04-07 15:14] LABS: BASOPHILS # (AUTO) 0.1 K/uL (0.00-0.22); BASOPHILS % (AUTO) 0.5 % (0.0-2.0); EOSINOPHILS # (AUTO) 0.1 K/uL (0-0.4); EOSINOPHILS % (AUTO) 0.7 % (0.0-4.0); HEMATOCRIT 37.3 % (36-48); HEMOGLOBIN 12.6 g/dL (12.0-16.0); LYMPHOCYTES # (AUTO) 1.3 K/uL (2.5-16.5); LYMPHOCYTES % (AUTO) 9.8 % (20.5-51.1); MEAN CORPUSCULAR HEMOGLOBIN 27 pg (27-31); MEAN CORPUSCULAR HGB CONC 34 g/dL (33-37); MEAN CORPUSCULAR VOLUME 80.6 fL (80-94); MONOCYTES # (AUTO) 0.6 K/uL (0.8-1.0); MONOCYTES % (AUTO) 4.8 % (1.7-9.3); NEUTROPHILS # (AUTO) 11.4 K/uL (1.8-7.7); NEUTROPHILS % (AUTO) 84.2 % (42.2-75.2); PLATELET COUNT (AUTO) 309 K/uL (140-450); RED BLOOD CELL COUNT(AUTO) 4.63 MIL/uL (4.20-5.40); RED CELL DISTRIBUTION WIDTH 14.2 % (11.6-13.7); WHITE BLOOD COUNT (AUTO) 13.5 K/uL (4.8-10.8)
[2023-04-07 15:15] LABS: APPEARANCE,URINE CLEAR (CLEAR); BILIRUBIN,URINE NEGATIVE (NEGATIVE); BLOOD, URINE TRACE-I (NEGATIVE); COLOR,URINE YELLOW (YELLOW); LEUKOCYTE ESTERASE ,URINE NEGATIVE (NEGATIVE); NITRITE, URINE NEGATIVE (NEGATIVE); UGLUCOSE NEGATIVE (NEGATIVE)
[2023-04-07 15:37] LABS: RBC,URINE 0-5 /HPF (0-5)
[2023-04-07 15:52] LABS: ALBUMIN 4.2 g/dL (3.4-5.0); ANION GAP 15.5 (8-16); CARBON DIOXIDE 24.7 mmol/L (21-32); CREATININE 0.6 mg/dL (0.6-1.3); POTASSIUM 4.2 mmol/L (3.5-5.1); TOTAL BILIRUBIN 0.3 mg/dL (0.0-1.0)
[2023-04-07] MEDS ORDERED: HYDROcodone/APAP 5/325 MG 1 TAB TAB ONE (16:08)
--- NOTE | 2023-04-07 16:50 | NUR ---
AMBULATORY WITH STEADY GAIT, RETURNED FROM US
--- NOTE | 2023-04-07 17:21 | NUR ---
Pt OOB to the restroom. Family at BS with pt. Pt stated, the [facility] is helping with her pain. Pt continues to c/o 05/11 periumbilical pain.
--- NOTE | 2023-04-07 17:56 | NUR ---
at updating pt on findings. Informed the pt that she would likely be discharged.
[2023-04-07] MEDS ORDERED: ACET-8905 PO (17:57)
[2023-04-07 18:04] VITALS: BP 120/71
--- NOTE | 2023-04-07 18:15 | NUR ---
Patient discharged with v/s stable. Written and verbal after care instructions given and explained. Patient alert, oriented and verbalized understanding of instructions. Ambulatory with out assistance to car. Mother driving pt home. All questions addressed prior to discharge. ID band removed. Patient advised to follow up with PMD. Rx of hydrocodone/Acetaminophen given. Patient educated on indication of medication including possible reaction and side effects. Opportunity to ask questions provided and answered. Instructed pt to return if condition worsens.
== END 2023-04-07 18:04 | disposition home or self-care (01) ==
LOC: MED 14:15
DX: N83.292 Other ovarian cyst, left side (principal); Z98.890 Other specified postprocedural states; Z79.899 Other long term (current) drug therapy; Z79.2 Long term (current) use of antibiotics; Z79.1 Long term (current) use of non-steroidal anti-inflammatories (NSAID)
CPT/HCPCS: 36415; 76830; 80053; 81001; 81025; 83690; 85025; 96360; 99284; J7030; Q0092

== ENCOUNTER 2023-04-21 10:40 | Inpatient (IN) | payer MEDICAID ==
[~2023-04-21] VITALS: Ht 157.5 cm; Wt 83.0 kg
[~2023-04-21 10:40] MED LIST changes: +ACET-8905 PO
[2023-04-21 10:59] VITALS: BP 115/76; PULSE 127; RESP 18; TEMP 100.4; O2SAT 98
--- NOTE | 2023-04-21 10:59 | NUR ---
URINE COLLECTED IN TRIAGE
[2023-04-21] MEDS ORDERED: KETOROLAC 30 MG/ML VIAL IVP ONE (13:40)
[2023-04-21] MEDS ORDERED: NACL 0.9% 1,000 ML IV ONE ×2 (13:40→14:50)
[2023-04-21] MEDS ORDERED: ONDANSETRON 4 MG/2 ML VIAL IVP ONE ×2 (13:40→16:15)
[2023-04-21 14:12] VITALS: O2SAT 98
[2023-04-21 14:14] LABS: HEMATOCRIT 31.7 % (36-48); HEMOGLOBIN 10.5 g/dL (12.0-16.0); MEAN CORPUSCULAR HEMOGLOBIN 26 pg (27-31); MEAN CORPUSCULAR HGB CONC 33 g/dL (33-37); MEAN CORPUSCULAR VOLUME 79.5 fL (80-94); PLATELET COUNT (AUTO) 573 K/uL (140-450); RED BLOOD CELL COUNT(AUTO) 3.99 MIL/uL (4.20-5.40); RED CELL DISTRIBUTION WIDTH 14.2 % (11.6-13.7)
[2023-04-21] MEDS ORDERED: ACETAMINOPHEN EXTRA STRENGTH 500 MG TAB PO ONE (14:15)
--- NOTE | 2023-04-21 14:18 | NUR ---
PATIENT PRESENTS TO ED WITH PELVIC, BACK PAIN. PT STATES THE PAIN HAS BEEN CONSTANT AN OCCURED 20 DAYS. PATIENT STATES SHES HAD URNIARY FREQUENCY,BURNING PAINFUL SENSATION, FLANK PAIN; SKIN IS PINK/WARM/DRY; AAOX4 WITH EVEN AND STEADY GAIT; LUNGS CLEAR BL; HR EVEN AND REGULAR; PT DENIES ANY FEVER, CP, SOB, OR COUGH AT THIS TIME; PATIENT STATES PAIN OF 8/10 AT THIS TIME; VSS; PATIENT POSITIONED FOR COMFORT; HOB ELEVATED; BEDRAILS UP X2; BED DOWN. ER MD MADE AWARE OF PT STATUS.
--- NOTE | 2023-04-21 14:20 | NUR ---
ULTRA SOUND AT BEDSIDE.
[2023-04-21 14:28] LABS: ALBUMIN 2.9 g/dL (3.4-5.0); ANION GAP 18.2 (8-16); CARBON DIOXIDE 23.4 mmol/L (21-32); CREATININE 0.6 mg/dL (0.6-1.3); POTASSIUM 3.6 mmol/L (3.5-5.1); TOTAL BILIRUBIN 0.3 mg/dL (0.0-1.0)
[2023-04-21 14:35] LABS: LYMPHOCYTES % (MANUAL) 6 % (20-46); MONOCYTES % (MANUAL) 3 % (5-12); PROMYELOCYTES % 1 % (0-0)
[2023-04-21] MEDS ORDERED: ACETAMINOPHEN EXTRA STRENGTH 500 MG TAB ONE (15:42)
[2023-04-21] MEDS ORDERED: MORPHINE SULFATE 4 MG/ML SYR IVP ONE (16:15)
[2023-04-21] MEDS ORDERED: cefTRIAXone 1,000 MG VIAL ONE (16:19)
[2023-04-21 16:21] LABS: BILIRUBIN,URINE 1+ (NEGATIVE); BLOOD, URINE NEGATIVE (NEGATIVE); COLOR,URINE YELLOW (YELLOW); LEUKOCYTE ESTERASE ,URINE TRACE (NEGATIVE); NITRITE, URINE POSITIVE (NEGATIVE); PH,URINE 5.5 (5.0-9.0); UGLUCOSE NEGATIVE (NEGATIVE)
[2023-04-21] MEDS ORDERED: KETOROLAC 30 MG/ML VIAL ONE (16:21)
[2023-04-21 16:29] LABS: APPEARANCE,URINE HAZY (CLEAR)
[2023-04-21 16:36] LABS: RBC,URINE NONE SEEN /HPF (0-5)
--- NOTE | 2023-04-21 16:40 | NUR ---
AT TO REEVAL PT, DISCUSS TEST RESULTS and pland of care. PAin meds given as ordered with good relief
[2023-04-21] MEDS: metroNIDAZOLE 500 MG/NS PREMIX 100 ML IV SCH ×2 (17:10→21:48)
[2023-04-21] MEDS: DOXYCYCLINE 100 MG in DEXTROSE 5% 100 ML IV SCH (18:00)
--- NOTE | 2023-04-21 19:26 | NUR ---
The patient's care was reviewed and supervised by [facility] ED, RN.
[2023-04-21] MEDS ORDERED: METR-435 PO (19:39)
[2023-04-21] MEDS ORDERED: IBUP-2218 PO (19:39)
[2023-04-21] MEDS ORDERED: OXYC5TAB4 PO (19:39)
--- NOTE | 2023-04-21 19:44 | NUR ---
RELEASED CARE TO JOHNNY FLOWERS AT 1930
[2023-04-21 20:05] VITALS: O2SAT 98
--- NOTE | 2023-04-21 21:30 | NUR ---
PT AWAKE AND ALERT, RESPIRATIONS EVEN AND UNLABORED. FAMILY BEDSIDE. PT TOLERATED FLUIDS WELL. AWAITING ADMISSION
[2023-04-21] MEDS: HYDROcodone/APAP 5/325 MG 1 TAB TAB PO PRN (21:43)
[2023-04-21 22:37] VITALS: O2SAT 98
--- NOTE | 2023-04-22 00:15 | NUR ---
PT RESTING IN ROOM. AWAITING ADMISSION
[2023-04-22 02:14] VITALS: O2SAT 96
--- NOTE | 2023-04-22 03:30 | NUR ---
PT AWAKE AND ALERT. ASKING ABOUT ROOM AND WHEN SHE WILL BE ADMITTED.
[2023-04-22] MEDS: HYDROcodone/APAP 5/325 MG 1 TAB TAB PO PRN ×4 (03:52→19:46)
[2023-04-22] MEDS: metroNIDAZOLE 500 MG/NS PREMIX 100 ML IV SCH ×3 (04:50→20:40)
[2023-04-22] MEDS ORDERED: DOXYCYCLINE 100 MG VIAL IV ONE (06:01)
[2023-04-22] MEDS: DOXYCYCLINE 100 MG in DEXTROSE 5% 100 ML IV SCH ×2 (06:19→18:11)
[2023-04-22 06:22] VITALS: O2SAT 96
--- NOTE | 2023-04-22 07:16 | NUR ---
Pt report given to REHAN GOINS. Transfer of care at this time.
--- NOTE | 2023-04-22 07:31 | NUR ---
PT CARE RESUMED
[2023-04-22 07:53] LABS: ANION GAP 10.9 (8-16); CARBON DIOXIDE 26.7 mmol/L (21-32); CREATININE 0.6 mg/dL (0.6-1.3); POTASSIUM 3.6 mmol/L (3.5-5.1)
--- NOTE | 2023-04-22 08:31 | NUR ---
Patient will be admitted to care of NEPTALI HARTMANN. Admited to MED/SURG. Will go to room 112A. Belongings list completed. Report to OBET RN.
[2023-04-22 08:33] VITALS: O2SAT 99
--- NOTE | 2023-04-22 08:41 | NUR ---
PATIENT HAS BEEN SCREENED AND CATEGORIZED LOW NUTRITION RISK. PATIENT WILL BE SEEN WITHIN 7 DAYS OF ADMISSION. 04/28/[address]
[2023-04-22 09:00] VITALS: RESP 19
[2023-04-22] MEDS: ENOXAPARIN 40 MG/0.4 ML SYR SUBQ SCH (09:00)
--- NOTE | 2023-04-22 09:00 | NUR ---
RECEIVED PATIENT FROM ED. PATIENT SEEN AWAKE AMBULATORY. PATIENT CARE CONTINUED.
[2023-04-22] MEDS: POTASSIUM CHL 20 MEQ/D5-1/2NS 1,000 ML IV SCH ×2 (09:40→18:25)
--- NOTE | 2023-04-22 15:46 | NUR ---
DC PLANNIN YRS OLD FEMALE PATIENT WAS ADMITTED FROM HOME WITH A DX OF PID. PATIENT HAS A HX OF ENDOMETRIOSIS. TRANSVAGINAL US SHOWED PERSISTENT COMPLEX 4.1 CM RIGHT ADNEXAL CYSTIC STRUCTURE. CT ABD/PELVIS SHOWED LOW DENSITY MASSES IN THE ADNEXAL REGIONS. ADMINISTERED IVF, IV ABX FLAGYL ROCEPHIN AND DOXYCYCLINE. CONSULTED WITH OBGYN, GI AND SURGEON. DC PLAN TO GO HOME WHEN STABLE. CM TO FOLLOW Addendum: 04/23/23 at 1200 by Maddie Taylor RN DC PLANNING: SEEN BY OB-SEAL MIXER DR FISCHER RECOMMENDED TO CONTINUE PAIN MANAGEMENT AND IV ABX FOR LIKELY UTI AND TO F/U OUT PATIENT. DC PLAN TO GO HOME. CM TO FOLLOW
[2023-04-22 16:00] VITALS: BP 105/58; PULSE 62; RESP 18; TEMP 96.2; O2SAT 97
--- NOTE | 2023-04-22 18:48 | NUR ---
PATIENT SEEN. PATIENT STATES NO PAIN. NORCO GIVEN TWICE, FIRST TIME GIVEN PATIENT PAIN SCORE 5, GIVEN 1 NORCO. NEXT PAIN MED GIVEN 4 HOURS LATE PATIENT STATES OF 7 PAIN SCORE. GIVEN 2 NORCO PILLS. PATIENT RECENTLY GIVEN ANTIBIOTICS FOR 6PM. PATIENT STATES SLIGHT NAUSEA ANTIBIOTIC STARTS, BUT GOES AWAY AFTER A COUPLE OF MINUTES.
--- NOTE | 2023-04-22 19:25 | NUR ---
RECEIVED PATIENT FROM AM NURSE FOR CONTINUITY OF CARE. PT IS STABLE
[2023-04-22 20:00] VITALS: BP 116/66; PULSE 62; RESP 18; TEMP 97.7; O2SAT 96
[2023-04-23] MEDS: HYDROcodone/APAP 5/325 MG 1 TAB TAB PO PRN ×4 (02:11→20:32)
[2023-04-23 04:00] VITALS: BP 109/62; PULSE 65; RESP 18; TEMP 98.3; O2SAT 96
[2023-04-23] MEDS: POTASSIUM CHL 20 MEQ/D5-1/2NS 1,000 ML IV SCH ×3 (04:34→15:16)
[2023-04-23] MEDS: metroNIDAZOLE 500 MG/NS PREMIX 100 ML IV SCH ×3 (05:16→20:29)
[2023-04-23] MEDS: DOXYCYCLINE 100 MG in DEXTROSE 5% 100 ML IV SCH ×2 (06:07→18:00)
[2023-04-23 06:35] LABS: ANION GAP 12.3 (8-16); CARBON DIOXIDE 26.2 mmol/L (21-32); CREATININE 0.6 mg/dL (0.6-1.3); POTASSIUM 3.5 mmol/L (3.5-5.1)
[2023-04-23 06:39] LABS: BASOPHILS # (AUTO) 0.1 K/uL (0.00-0.22); BASOPHILS % (AUTO) 0.5 % (0.0-2.0); EOSINOPHILS % (AUTO) 0.4 % (0.0-4.0); HEMATOCRIT 27.5 % (36-48); HEMOGLOBIN 9.2 g/dL (12.0-16.0); LYMPHOCYTES # (AUTO) 2.1 K/uL (2.5-16.5); LYMPHOCYTES % (AUTO) 17.5 % (20.5-51.1); MEAN CORPUSCULAR HEMOGLOBIN 27 pg (27-31); MEAN CORPUSCULAR HGB CONC 33 g/dL (33-37); MEAN CORPUSCULAR VOLUME 80.4 fL (80-94); MONOCYTES # (AUTO) 0.8 K/uL (0.8-1.0); NEUTROPHILS # (AUTO) 8.9 K/uL (1.8-7.7); NEUTROPHILS % (AUTO) 74.6 % (42.2-75.2); PLATELET COUNT (AUTO) 486 K/uL (140-450); RED BLOOD CELL COUNT(AUTO) 3.42 MIL/uL (4.20-5.40); RED CELL DISTRIBUTION WIDTH 14.2 % (11.6-13.7); WHITE BLOOD COUNT (AUTO) 11.9 K/uL (4.8-10.8)
--- NOTE | 2023-04-23 07:54 | NUR ---
RECEIEVED PATIENT FROM PM NURSE FOR CONTINUATION OF CARE. PATIENT SEEN ON BED ASLEEP. NORMAL RISE AND FALL OF CHEST OBSERVED. PATIENT CARE RESUMED.
[2023-04-23 08:00] VITALS: BP 122/77; PULSE 91; RESP 18; TEMP 100.1; O2SAT 99
[2023-04-23] MEDS: ENOXAPARIN 40 MG/0.4 ML SYR SUBQ SCH (08:51)
[2023-04-23 16:00] VITALS: BP 124/74; PULSE 89; RESP 18; TEMP 99.3; O2SAT 96
--- NOTE | 2023-04-23 16:49 | NUR ---
PATIENT CLAIMED THEY FELT NAUSEOUS AFTER RECEIVING IVPB ROCEPHIN.
[2023-04-23] MEDS: ONDANSETRON 4 MG/2 ML VIAL IVP PRN (17:49)
--- NOTE | 2023-04-23 18:00 | NUR ---
PATIENT REFUSED IVPB DOXYCYCLINE BECAUSE SHE FEELS NAUSEOUS WHEN THE ANTIBIOTIC IS RUNNING. PATIENT GIVEN ZOFRAN TPO RELIEVE NAUSEA AND VOMITING.
[2023-04-23] MEDS ORDERED: TOBRAMYCIN 120 MG in DEXTROSE 5% 100 ML IV SCH (19:30)
--- NOTE | 2023-04-23 19:31 | NUR ---
ENDORSED PATIENT TO PM NURSE FOR CONTINUITY OF CARE.
--- NOTE | 2023-04-23 19:34 | NUR ---
RECEIVED PATIENT FROM AM NURSE FOR CONTINUITY OF CARE.PT IS STABLE
[2023-04-23 20:00] VITALS: BP 128/75; PULSE 92; RESP 18; TEMP 97.9; O2SAT 98
[2023-04-24] MEDS ORDERED: PIPERACILLIN/TAZOBACTAM 3.375 GM VIAL IV ONE ×2 (00:07→05:38)
[2023-04-24] MEDS: PIPERACILLIN/TAZOBACTAM 3.375 GM in DEXTROSE 5% 50 ML IV SCH ×5 (00:17→23:53)
[2023-04-24] MEDS: POTASSIUM CHL 20 MEQ/D5-1/2NS 1,000 ML IV SCH ×4 (00:19→22:33)
[2023-04-24 04:00] VITALS: BP 118/80; PULSE 86; RESP 18; TEMP 97.6; O2SAT 99
[2023-04-24] MEDS: HYDROcodone/APAP 5/325 MG 1 TAB TAB PO PRN ×2 (06:01→11:04)
[2023-04-24 06:45] LABS: BASOPHILS # (AUTO) 0.1 K/uL (0.00-0.22); BASOPHILS % (AUTO) 0.5 % (0.0-2.0); EOSINOPHILS % (AUTO) 0.3 % (0.0-4.0); HEMATOCRIT 27.9 % (36-48); HEMOGLOBIN 9.2 g/dL (12.0-16.0); LYMPHOCYTES # (AUTO) 2.1 K/uL (2.5-16.5); MEAN CORPUSCULAR HEMOGLOBIN 26 pg (27-31); MEAN CORPUSCULAR HGB CONC 33 g/dL (33-37); MEAN CORPUSCULAR VOLUME 79.5 fL (80-94); MONOCYTES # (AUTO) 0.9 K/uL (0.8-1.0); MONOCYTES % (AUTO) 6.6 % (1.7-9.3); NEUTROPHILS % (AUTO) 76.6 % (42.2-75.2); PLATELET COUNT (AUTO) 519 K/uL (140-450); RED CELL DISTRIBUTION WIDTH 14.2 % (11.6-13.7); WHITE BLOOD COUNT (AUTO) 13.1 K/uL (4.8-10.8)
--- NOTE | 2023-04-24 07:00 | NUR ---
RECEIVED REPORT FROM NIGHT NURSE HUNTER FOR CONTINUITY OF CARE. ALERT AND ORIENTED X 4. RESP. EVEN AND UNLABORED. IVF INFUSING WELL. NO C/O PAIN OR DISCOMFORT. CALL LIGHT KEPT WITHIN REACH. WILL CONTINUE TO MONITOR.
[2023-04-24 07:03] LABS: ANION GAP 11.7 (8-16); CARBON DIOXIDE 26.9 mmol/L (21-32); CREATININE 0.6 mg/dL (0.6-1.3); POTASSIUM 3.6 mmol/L (3.5-5.1)
[2023-04-24 08:00] VITALS: BP 116/71; PULSE 83; RESP 17; TEMP 98.3; O2SAT 96
[2023-04-24] MEDS: PANTOPRAZOLE 40 MG TABEC PO SCH (08:41)
--- NOTE | 2023-04-24 08:41 | NUR ---
PROTONIX PO WAS GIVEN. TOLERATED WELL.
[2023-04-24] MEDS: SIMETHICONE 80 MG TAB.CHEW PO PRN ×2 (11:04→18:54)
--- NOTE | 2023-04-24 11:04 | NUR ---
PRN SIMITICONE FOR GAS AND PRN NORCO FOR PAIN WAS GIVEN. TOLERATED WELL.
--- NOTE | 2023-04-24 11:49 | NUR ---
ZOSYN IV WAS GIVEN BY VANNESA GOINS. TOLERATED WELL.
--- NOTE | 2023-04-24 12:37 | NUR ---
Environmental Advisor OVERLAY PLASTICIAN introduced self to pt. and mom who was visiting. Pt. stated she is feeling better and did not have any issues to discuss. Pt. stated her mom is her emergency contact although her boyfriend of 5 years was listed. Pt. stated boyfriend, Tomi can be her secondary contact. OVERLAY PLASTICIAN will add pts. mom as primary contact as per pts. wishes. OVERLAY PLASTICIAN completed a Discharge Planning Assessment. Pt. resides with mom, dad, grandparents and 2 sisters. Pt. stated they are available and supportive to her. Pt. stated she graduated from college and now works. OVERLAY PLASTICIAN asked her to inquire about needing a doctors note. Pt. and mom stated they were good and did not have any questions or concerns. OVERLAY PLASTICIAN will remain available as needed.
--- NOTE | 2023-04-24 13:06 | NUR ---
04/24/23 RD INITIAL ASSESSMENT COMPLETED PLEASE REFER TO NUTRITION ASSESSMENT UNDER CARE ACTIVITY FOR ESTIMATED NUTRITIONAL NEEDS. 1. CONTINUE CLEAR LIQUID DIET TOLERATED AND ADVANCE TO FULL LIQUID AND REGULAR DIET ONCE MEDICALLY APPROPRIATE. 2. RD TO FOLLOW-UP 7 DAYS, LOW RISK DARLINE ACUNA, JARON
[2023-04-24] MEDS: ONDANSETRON 4 MG/2 ML VIAL IVP PRN (16:51)
--- NOTE | 2023-04-24 18:55 | NUR ---
ZOSYN IV AND PRN SIMETHICONE WAS GIVEN BY YOCASTA GOINS. TOLERATED WELL.
--- NOTE | 2023-04-24 19:09 | NUR ---
BEDSIDE REPORT GIVEN TO OPHTHALMIC AIDE FOR CONTINUITY OF CARE. REMAINS STABLE.
--- NOTE | 2023-04-24 19:42 | NUR ---
RECEIVED BEDSIDE REPORT FROM DAY SHIFT NURSE FOR CONTINUITY OF CARE. PT IS AWAKE AT THIS TIME, FAMILY AT BEDSIDE. A&O X4, IS AMBULATORY AND CONTINENT. CURRENTLY ON ROOM AIR WITH NO SIGNS OF RESPIRATORY DISTRESS NOTED. PT HAS IB SITE LOCATED AT RIGHT AC 20 GAUGE, FLUSHED, INTACT AND PATENT. OVERALL SKIN IS INTACT. PT DIET ADVANCED TO MECHANICAL SOFT.
[2023-04-24 20:00] VITALS: BP 123/71; PULSE 82; RESP 16; TEMP 98.1; O2SAT 97
[2023-04-24 20:23] VITALS: PULSE 83; RESP 18; O2SAT 96
--- NOTE | 2023-04-24 20:34 | NUR ---
Patient's Plan of Care was discussed and reviewed with TILE FINISHER: KERRI ZUÑIGA
--- NOTE | 2023-04-25 02:47 | NUR ---
PT RESTING COMFORTABLY. RESPIRATIONS EVEN AND UNLABORED, NO VISIBLE SIGNS/SYMPTOMS OF DISTRESS NOTED. IV STILL INFUSING WELL. WILL CONTINUE TO MONITOR.
[2023-04-25 04:00] VITALS: BP 110/70; PULSE 75; RESP 18; TEMP 98; O2SAT 98
--- NOTE | 2023-04-25 05:12 | NUR ---
NEW IV STARTED AT RIGHT HAND 24 GAUGE, INTACT AND PATENT.
[2023-04-25] MEDS: PIPERACILLIN/TAZOBACTAM 3.375 GM in DEXTROSE 5% 50 ML IV SCH ×2 (05:52→13:05)
[2023-04-25 06:46] LABS: BASOPHILS # (AUTO) 0.1 K/uL (0.00-0.22); BASOPHILS % (AUTO) 1.1 % (0.0-2.0); EOSINOPHILS # (AUTO) 0.1 K/uL (0-0.4); EOSINOPHILS % (AUTO) 1.4 % (0.0-4.0); HEMATOCRIT 26.6 % (36-48); HEMOGLOBIN 8.9 g/dL (12.0-16.0); LYMPHOCYTES # (AUTO) 2.1 K/uL (2.5-16.5); LYMPHOCYTES % (AUTO) 29.7 % (20.5-51.1); MEAN CORPUSCULAR HEMOGLOBIN 27 pg (27-31); MEAN CORPUSCULAR HGB CONC 34 g/dL (33-37); MEAN CORPUSCULAR VOLUME 79.6 fL (80-94); MONOCYTES # (AUTO) 0.6 K/uL (0.8-1.0); MONOCYTES % (AUTO) 7.7 % (1.7-9.3); NEUTROPHILS # (AUTO) 4.3 K/uL (1.8-7.7); NEUTROPHILS % (AUTO) 60.1 % (42.2-75.2); PLATELET COUNT (AUTO) 482 K/uL (140-450); RED BLOOD CELL COUNT(AUTO) 3.34 MIL/uL (4.20-5.40); RED CELL DISTRIBUTION WIDTH 14.1 % (11.6-13.7); WHITE BLOOD COUNT (AUTO) 7.2 K/uL (4.8-10.8)
[2023-04-25 06:55] LABS: ANION GAP 10.8 (8-16); CARBON DIOXIDE 28.2 mmol/L (21-32); CREATININE 0.6 mg/dL (0.6-1.3)
--- NOTE | 2023-04-25 07:00 | NUR ---
RECEIVED BEDSIDE REPORT FROM NIGHTSHIFT NURSE. PT ASLEEP IN BED, WOKE TO NAME AND TOUCH, NO SIGNS OF DISTRESS, NO REPORTS OF PAIN/DISCOMFORT. MADE SURE CALL LIGHT WITHIN REACH, WILL CONTINUE WITH PT CARE.
[2023-04-25 08:00] VITALS: PULSE 69; RESP 18; O2SAT 99
[2023-04-25] MEDS: HYDROcodone/APAP 5/325 MG 1 TAB TAB PO PRN (09:07)
[2023-04-25] MEDS: PANTOPRAZOLE 40 MG TABEC PO SCH (09:07)
[2023-04-25] MEDS ORDERED: NACL 0.9% 1,000 ML IV SCH (10:25)
[2023-04-25] MEDS ORDERED: IBUPROFEN 800 MG TAB PO PRN (10:25)
[2023-04-25] MEDS ORDERED: CIPR500T4 PO (12:43)
[2023-04-25] MEDS ORDERED: METR-520 PO (12:46)
[2023-04-25 16:41] VITALS: BP 105/64; PULSE 69; RESP 18; TEMP 96.7
--- NOTE | 2023-04-25 17:55 | NUR ---
DISCHARGE EDUCATION PROVIDED. PT VERBALIZE UNDERSTANDING, PAPERWORK SIGNED. IV REMOVED, ID BAND REMOVED. PT STABLE UPON DISCHARGE. PT LEFT UNIT VIA WHEELCHAIR WITH BOYFRIEND.
== END 2023-04-25 17:45 | disposition home or self-care (01) | DRG 720 ==
LOC: MED 10:40 → MMU 17:12 → MTU 04-22 06:20
PROVIDERS: ADMIT Internal Medicine; ATTEND Internal Medicine
DX: A41.9 Sepsis, unspecified organism (principal); E44.1 Mild protein-calorie malnutrition; K76.0 Fatty (change of) liver, not elsewhere classified; K57.20 Diverticulitis of large intestine with perforation and abscess without bleeding; N83.201 Unspecified ovarian cyst, right side; E86.0 Dehydration; D64.9 Anemia, unspecified; K80.20 Calculus of gallbladder without cholecystitis without obstruction; N39.0 Urinary tract infection, site not specified; N80.9 Endometriosis, unspecified; Z79.1 Long term (current) use of non-steroidal anti-inflammatories (NSAID); Z79.899 Other long term (current) drug therapy; Z68.33 Body mass index [BMI] 33.0-33.9, adult
CPT/HCPCS: 36415; 76830; 80048; 80053; 81001; 81025; 83605; 83735; 84702; 85025; 87040; 87081; 87086; 87491; 96374; 96375; 96376; 99285; J0696; J1650; J1885; J2270; J2405; J2543; J3490; J7060; Q0092

== ENCOUNTER 2023-07-28 13:05 | Inpatient (IN) | payer MEDICAID ==
[~2023-07-28] VITALS: Ht 165.1 cm; Wt 77.2 kg
[~2023-07-28 13:05] MED LIST changes: -AMOX1TAB8 PO; +CIPR500T4 PO; +IBUP-2218 PO; +METR-520 PO; +OXYC5TAB4 PO
[2023-07-28 13:35] VITALS: BP 121/83; PULSE 134; RESP 19; TEMP 98.6; O2SAT 99
[2023-07-28] MEDS ORDERED: MORPHINE SULFATE 4 MG/ML SYR IVP ONE (16:25)
[2023-07-28 16:58] LABS: BILIRUBIN,URINE 1+ (NEGATIVE); BLOOD, URINE 1+ (NEGATIVE); LEUKOCYTE ESTERASE ,URINE NEGATIVE (NEGATIVE); NITRITE, URINE POSITIVE (NEGATIVE); PROTEIN,URINE 2+ (NEGATIVE); UGLUCOSE TRACE (NEGATIVE); UROBILINOGEN,URINE 0.2 EU/dL (0.2 - 1)
[2023-07-28 17:09] LABS: BACTERIA,URINE 10-30 (MOD) /HPF (None Seen); WBC,URINE 0-5 /HPF (0-5)
[2023-07-28 17:10] LABS: ICTOTEST NEGATIVE (NEGATIVE); SQUAMOUS EPITHELIAL CELL,UR 0-3 (FEW) /LPF (0-3 (FEW))
[2023-07-28] MEDS ORDERED: MORPHINE SULFATE 2 MG/ML SYR IVP PRN (17:10)
[2023-07-28] MEDS ORDERED: NACL 0.9% 1,000 ML IV ONE ×2 (17:10→18:55)
[2023-07-28 17:11] LABS: APPEARANCE,URINE CLOUDY (CLEAR); COLOR,URINE STRAW (YELLOW)
[2023-07-28 17:25] LABS: BASOPHILS % (AUTO) 0.2 % (0.0-2.0); HEMATOCRIT 34.3 % (36-48); HEMOGLOBIN 11.6 g/dL (12.0-16.0); LYMPHOCYTES # (AUTO) 0.9 K/uL (2.5-16.5); LYMPHOCYTES % (AUTO) 4.6 % (20.5-51.1); MEAN CORPUSCULAR HEMOGLOBIN 26 pg (27-31); MEAN CORPUSCULAR HGB CONC 34 g/dL (33-37); MEAN CORPUSCULAR VOLUME 76.8 fL (80-94); MONOCYTES # (AUTO) 0.9 K/uL (0.8-1.0); MONOCYTES % (AUTO) 4.6 % (1.7-9.3); NEUTROPHILS # (AUTO) 17.3 K/uL (1.8-7.7); NEUTROPHILS % (AUTO) 90.6 % (42.2-75.2); PLATELET COUNT (AUTO) 328 K/uL (140-450); RED BLOOD CELL COUNT(AUTO) 4.46 MIL/uL (4.20-5.40); RED CELL DISTRIBUTION WIDTH 14.2 % (11.6-13.7); WHITE BLOOD COUNT (AUTO) 19.2 K/uL (4.8-10.8)
[2023-07-28 17:51] LABS: ALBUMIN 3.8 g/dL (3.4-5.0); ANION GAP 16.1 (8-16); CREATININE 0.7 mg/dL (0.6-1.3); POTASSIUM 3.1 mmol/L (3.5-5.1); TOTAL BILIRUBIN 0.9 mg/dL (0.0-1.0)
[2023-07-28] MEDS ORDERED: MORPHINE SULFATE 10 MG/ML VIAL IVP ONE (18:40)
[2023-07-28] MEDS ORDERED: cefTRIAXone 1,000 MG VIAL ONE (19:09)
[2023-07-28 20:07] VITALS: O2SAT 98
[2023-07-28] MEDS ORDERED: fentaNYL citrate 0.05 MG/ML VIAL IVP ONE (20:10)
[2023-07-28] MEDS ORDERED: ONDANSETRON 4 MG/2 ML VIAL IVP ONE (20:10)
[2023-07-28] MEDS ORDERED: ACETAMINOPHEN 325 MG TAB PO ONE (20:40)
[2023-07-28] MEDS ORDERED: ZOLPIDEM 5 MG TAB PO PRN (21:10)
[2023-07-28] MEDS ORDERED: HYDROcodone/APAP 7.5/325 MG 1 TAB PO PRN (21:10)
[2023-07-28] MEDS ORDERED: POTASSIUM CHLORIDE 10 MEQ TABER PO PRN (21:10)
[2023-07-28] MEDS ORDERED: DOCUSATE SODIUM 100 MG GELCAP PO PRN (21:10)
[2023-07-28] MEDS ORDERED: guaiFENesin DM 200/20 MG-10 ML 10 ML UDC PO PRN (21:10)
[2023-07-28 22:00] LABS: INR 1.13 (0.8-1.2); PARTIAL THROMBOPLASTIN TIME 31.9 secs (22-35.6); PROTHROMBIN TIME 11.8 secs (10.8-13.4)
[2023-07-28 22:40] VITALS: BP 98/59; PULSE 125; PULSE 127; RESP 18; TEMP 99.5; O2SAT 97
[2023-07-28 22:43] LABS: LACTIC ACID 1.6 mmol/L (0.4-2.0)
[2023-07-28] MEDS: NACL 0.9% 1,000 ML IV SCH (23:46)
[2023-07-29] VITALS: PULSE 121
[2023-07-29] MEDS: ONDANSETRON 4 MG/2 ML VIAL IM/IVP PRN ×3 (01:04→14:34)
[2023-07-29] MEDS: MORPHINE SULFATE 2 MG/ML SYR IVP PRN ×2 (03:40→08:37)
[2023-07-29 04:00] VITALS: BP 97/57; PULSE 112; PULSE 119; RESP 18; TEMP 97.3; O2SAT 98
[2023-07-29] MEDS ORDERED: PIPERACILLIN/TAZOBACTAM 3.375 GM VIAL IV ONE (04:10)
[2023-07-29] MEDS: PIPERACILLIN/TAZOBACTAM 3.375 GM in DEXTROSE 5% 50 ML IV SCH ×2 (04:34→13:09)
[2023-07-29 05:58] LABS: BASOPHILS % (AUTO) 0.1 % (0.0-2.0); HEMATOCRIT 30.3 % (36-48); HEMOGLOBIN 10.1 g/dL (12.0-16.0); LYMPHOCYTES # (AUTO) 1.3 K/uL (2.5-16.5); LYMPHOCYTES % (AUTO) 8.1 % (20.5-51.1); MEAN CORPUSCULAR HEMOGLOBIN 26 pg (27-31); MEAN CORPUSCULAR HGB CONC 34 g/dL (33-37); MEAN CORPUSCULAR VOLUME 78.8 fL (80-94); MONOCYTES # (AUTO) 1.4 K/uL (0.8-1.0); MONOCYTES % (AUTO) 8.5 % (1.7-9.3); NEUTROPHILS # (AUTO) 13.4 K/uL (1.8-7.7); NEUTROPHILS % (AUTO) 83.3 % (42.2-75.2); PLATELET COUNT (AUTO) 307 K/uL (140-450); RED BLOOD CELL COUNT(AUTO) 3.85 MIL/uL (4.20-5.40); RED CELL DISTRIBUTION WIDTH 14.6 % (11.6-13.7); WHITE BLOOD COUNT (AUTO) 16.1 K/uL (4.8-10.8)
[2023-07-29 06:26] LABS: ANION GAP 15.9 (8-16); CALCIUM 8.1 mg/dL (8.5-10.1); CARBON DIOXIDE 19.6 mmol/L (21-32); CREATININE 1.7 mg/dL (0.6-1.3); POTASSIUM 3.5 mmol/L (3.5-5.1); TOTAL BILIRUBIN 0.8 mg/dL (0.0-1.0)
[2023-07-29 08:00] VITALS: BP 90/53; PULSE 114; PULSE 118; RESP 18; TEMP 97.8; O2SAT 98
[2023-07-29] MEDS ORDERED: PANTOPRAZOLE 40 MG TABEC PO SCH (09:00)
[2023-07-29] MEDS ORDERED: HYDROmorphone PFS 2 MG/ML SYR IVP PRN (11:55)
[2023-07-29 12:00] VITALS: BP 103/67; PULSE 134; PULSE 136; RESP 18; TEMP 99.5; O2SAT 100
[2023-07-29] MEDS: ACETAMINOPHEN 325 MG TAB PO PRN ×2 (13:38→15:52)
[2023-07-29 16:00] VITALS: BP 90/50; PULSE 105; PULSE 85; RESP 18; TEMP 99.5; O2SAT 99
[2023-07-29] MEDS: NACL 0.9% 1,000 ML IV SCH (16:29)
[2023-07-29] MEDS ORDERED: NACL 0.9% 1,000 ML IV SCH (17:25)
== END 2023-07-29 19:15 | disposition left against medical advice (07) | DRG 530 ==
LOC: MED 13:05 → MTU 21:10
PROVIDERS: ADMIT Student in an Organized Health Care Education/Training Program; ATTEND Student in an Organized Health Care Education/Training Program
DX: C56.1 Malignant neoplasm of right ovary (principal); N17.9 Acute kidney failure, unspecified; R65.10 Systemic inflammatory response syndrome (SIRS) of non-infectious origin without acute organ dysfunction; N39.0 Urinary tract infection, site not specified; N83.521 Torsion of right fallopian tube; N83.209 Unspecified ovarian cyst, unspecified side; N13.9 Obstructive and reflux uropathy, unspecified; N80.9 Endometriosis, unspecified; Z53.29 Procedure and treatment not carried out because of patient's decision for other reasons
CPT/HCPCS: 36415; 76856; 80053; 81001; 81025; 83605; 83690; 85025; 85610; 85730; 87040; 87081; 87086; 96365; 96375; 96376; 99291; J0696; J1170; J2270; J2405; J2543; J3010; J7060